=== PATIENT | female | born 1950 | race Caucasian/White ===

== ENCOUNTER 2020-07-21 09:58 | Outpatient (REF) | payer MEDICARE, SELFPAY ==
--- NOTE | 2020-07-21 10:04 | MM_ITS ---
EXAMINATION: MM SCREENING DIGITAL BREAST TOMOSYNTHESIS, BILATERAL CLINICAL INFORMATION: Screening. Asymptomatic. The lifetime risk of breast cancer based on the Tyrer-Cuzick Model is 2%. COMPARISON: Mammography: 06/12/2018, 04/20/2017, 04/11/2017, 07/12/2014; breast MRI 05/01/2017 TECHNIQUE: Digital breast tomosynthesis is performed in both the craniocaudal and mediolateral oblique views along with computer-aided detection (CAD). Synthesized 2D images are generated from the tomosynthesis. Additional exaggerated left CC view is provided. FINDINGS: The breasts are heterogeneously dense, which may obscure small masses (ACR BI-RADS breast composition Category c). There are no significant masses, abnormal calcifications, or other abnormalities. No significant changes from prior exams. MM/MM tomosynthesis screening BI IMPRESSION: No mammographic evidence of malignancy. ASSESSMENT: BI-RADS 1: Negative RECOMMENDATION: Routine annual mammography screening. This patient's information was entered into a reminder system with a target due date for their next mammogram.
--- NOTE | 2020-07-21 10:04 | MM_ITS ---
EXAMINATION: BONE DENSITOMETRY CLINICAL INDICATION: Screening for osteoporosis. COMPARISON: Previous BD dated 06/12/2018 and baseline BD dated 05/14/2009. TECHNIQUE: Using a [employer] DXA System (software version: 13.1) manufactured by [employer], dual-energy x-ray absorptiometry was performed of the lumbar spine and left hip. The images are of good technical quality. Summary results are attached. FINDINGS: AP SPINE L1-L4: Current: BMD 0.917 g/cm2, Z-score 0.0, T-score -2.2, osteopenia, 0.3% decrease from previous, 0.3% increase from baseline (<5% change is not significant). Prior: BMD 0.920 g/cm2. Baseline: BMD 0.914 g/cm2. LEFT FEMUR, NECK: Current: BMD 0.829 g/cm2, Z-score 0.6, T-score -1.5, osteopenia. Prior: BMD 0.841 g/cm2. Baseline: BMD 0.778 g/cm2. LEFT FEMUR, TOTAL: Current: BMD 0.742 g/cm2, Z-score -0.2, T-score -2.1, osteopenia, 7.0% decrease from previous, 14.2% decrease from baseline (<5% change is not significant). Prior: BMD 0.798 g/cm2. Baseline: BMD 0.865 g/cm2. IDENTIFIED RISK FACTORS: Height loss, family history (parental hip fracture), menopause. HISTORY OF FRACTURE: None listed. MEDICATIONS: Vitamin D. MM/XR DEXA axial skeleton IMPRESSION: 1. DIAGNOSIS: Osteopenia based on the lowest T-score value of -2.2 in the lumbar spine applying World Health Organization criteria. 2. 10-YEAR FRACTURE RISK PREDICTION, FRAX: Major osteoporotic fracture (clinical spine, forearm, hip or shoulder) 13.9%. Hip fracture 4.7%. 3. Treatment Recommendations: NOF guidelines recommend consideration for treatment in postmenopausal women and men age 50 and older presenting with the following: -A hip or vertebral (clinical or morphometric) fracture. -T-score less than or equal to -2.5 at the femoral neck or spine after appropriate evaluation to exclude secondary causes. -Low bone mass at the hip or spine and a 10-year fracture probability by FRAX of greater than or equal to 3% for hip fracture or greater than or equal to 20% for major osteoporotic fracture based on the [place] adapted WHO algorithm. 4. Other Recommendations: All treatment decisions require clinical judgment and consideration of individual patient factors, including patient preferences, comorbidities, previous drug use, risk factors not captured in the FRAX model (e.g. frailty, falls, vitamin D deficiency, increased bone turnover, interval significant decline in bone density) and possible under or overestimation of fracture risk by FRAX. Additional medical evaluation for secondary cause of low bone mineral density may be appropriate. FUTURE SCAN RECOMMENDATION: People with diagnosed cases of osteoporosis or at high risk for fracture should have regular bone mineral density tests. For patients eligible for Medicare, routine testing is allowed once every 2 years. The testing frequency can be increased to one year for patients who have rapidly progressing disease, those who are receiving or discontinuing medical therapy to restore bone mass, or have additional risk factors.
== END 2020-07-21 09:59 | disposition home or self-care (01) ==
LOC: HO.MAMMO 09:58
PROVIDERS: Visit Provider Nurse Practitioner Family
DX: Z12.31 Encounter for screening mammogram for malignant neoplasm of breast (principal); Z13.820 Encounter for screening for osteoporosis; Z78.0 Asymptomatic menopausal state; Z79.899 Other long term (current) drug therapy
CPT/HCPCS: 77063; 77067; 77080

== ENCOUNTER 2021-10-19 11:55 | Outpatient (REF) | payer MEDICARE, SELFPAY ==
--- NOTE | ~2021-10-19 | MM_ITS ---
EXAMINATION: MM SCREENING DIGITAL BREAST TOMOSYNTHESIS, BILATERAL CLINICAL INFORMATION: Screening. Asymptomatic. The lifetime risk of breast cancer based on the Tyrer-Cuzick Model is 2%. COMPARISON: Mammography: 07/21/2020, 06/12/2018, 04/20/2017 TECHNIQUE: Digital breast tomosynthesis is performed in both the craniocaudal and mediolateral oblique views along with computer-aided detection (CAD). Synthesized 2D images are generated from the tomosynthesis. FINDINGS: The breasts are extremely dense, which lowers the sensitivity of mammography (ACR BI-RADS breast composition Category d). Parenchymal pattern is similar to prior studies. No developing density. No architectural abnormality. There are scattered bilateral vascular calcifications. The axilla are unremarkable. No significant changes. MM/MM tomosynthesis screening BI IMPRESSION: No mammographic evidence of malignancy. ASSESSMENT: BI-RADS 1: Negative RECOMMENDATION: Routine annual mammography screening. This patient's information was entered into a reminder system with a target due date for their next mammogram.
== END 2021-10-19 11:56 | disposition home or self-care (01) ==
LOC: HO.MAMMO 11:55
PROVIDERS: Visit Provider Nurse Practitioner Family
DX: Z12.31 Encounter for screening mammogram for malignant neoplasm of breast (principal)
CPT/HCPCS: 77063; 77067

== ENCOUNTER 2024-07-23 09:56 | Outpatient (AMB) | payer MEDICARE, SELFPAY ==
--- NOTE | 2024-07-23 10:01 | A.OFFVIS_ITS ---
Vital Signs 07/23/24 10:02 Height 5 ft 5 in Weight 114 lb 6.719 oz BMI 19.0 BP 122/78 Blood Pressure Location Lt brachial Position Sitting Pulse 77 Pulse Source Pulse Oximeter Pulse Oximetry (%) 99 Oxygen Delivery Method Room Air Intake Visit Reasons: joint pain/CM Intake Note: Patient is here to follow up on joint pain today. Allergies tramadol Allergy (Intermediate, Verified 07/23/24 10:10) extreme vomiting HPI HPI joint pain/CM: Details: Right CMC pain is bothering patient. She is having more difficulty with using hand. No new joint swelling. She saw Dr. Saravia core worker who was concerned with her being on hydroxychloroquine due to age-related macular degeneration. She said that he wrote me a letter but I have not received it. She has been having on and off mid back pain occurring localized to left side. Denies any incident contributing to the onset of pain. Applying heat helps. Review of Systems Const All systems reviewed & are unremarkable except as noted in HPI and below Physical Exam Vital Signs: Last Vital Signs Pulse 77 07/23/24 10:02 BP 122/78 07/23/24 10:02 Pulse Ox 99 07/23/24 10:02 Oxygen Delivery Method Room Air 07/23/24 10:02 BMI result Body Mass Index 19.0 Const Other: General: Comfortable CVS: RRR Respiratory: clear to auscultation bilaterally. Good respiratory effort Skin: No lesions seen MSK: Tender to palpate right CMC with squaring. Left 1st MCP is tender on palpation. Ulnar deviation of right MCPs which are reproducible. No synovitis present. 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 Good construction equipment overhauler strength. Good range of motion of upper extremity and lower extremity. Scoliosis present. No spinous process tenderness. Patient localizes pain left scapula and lateral to it. Office Procedures AMB Joint Injection/Aspiration Joint Injection/Aspiration Details: Right CMC Prep: site was prepped using aseptic technique Injected: 10 mg of, Kenalog, with 0.25 mL of and 1% plain lidocaine Procedure: The patient tolerated the procedure well Coding - Small Joint Procedure code (CPT) selection complete Office Meds Kenalog 40 mg/mL suspension for injection Performing Provider: Wilfredo Mendoza MD Performing Location: [facility] [place] Rhe[facility] Administered by: Wilfredo Mendoza MD on 07/23/24 11:24 Dose Route Admin Location Dispensed Lot Number Expiration Date [facility] Electrode Cleaning Machine Operator 10 mg intra-articular 0.25 mL [id number] [employer] lidocaine (PF) 10 mg/mL (1 %) injection solution Performing Provider: Wilfredo Mendoza MD Performing Location: [facility] [place] [facility] Administered by: Wilfredo Mendoza MD on 07/23/24 11:24 Dose Route Admin Location Dispensed Lot Number Expiration Date [facility] Electrode Cleaning Machine Operator 2.5 mg Infiltration 2 mL [id number] [facility] Assessment & Plan Assessment & Plan (1) Rheumatoid arthritis, seropositive: Comment: History of seropositive rheumatoid arthritis with positive anti CCP antibody, radiographic findings of periarticular osteopenia carpal bones and MCPs with joint space narrowing of MCPs, PIP knees and IP knees with multiple questionable erosions. In remission on monotherapy with hydroxychloroquine. She was recently told by Dr. Saravia that she should consider alternative treatment to hydroxychloroquine. I have not received his clinic note. Patient had an eye exam by Dr. Dalia Handy 05/10/2024 with normal visual field and OCT exam. 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 She has a strong family history of FMF. Her daughter and grandson have systemic FMS. Her son has FMS related inflammatory arthritis. She has reported episodic joint pain since she was young. Monitoring clinically. Code(s): M05.9 - Rheumatoid arthritis with rheumatoid factor, unspecified Category: Medical Plan: Continue hydroxychloroquine 200 mg daily. I have asked patient to contact Dr. Saravia's office for him to send me clinic note from April exam. Recent exam by Dr. Dalia Handy 04/2024 OCT anf VF normal. Patient has history of age- related macular degeneration. Labs for disease and drug monitoring ordered Return to clinic in 3 months (2) Scoliosis: Comment: Likely contributing to myofascial strain. We discussed importance of having good posture, building core and back strength with physical therapy. Code(s): M41.9 - Scoliosis, unspecified Category: Medical Plan: PT ordered Return to clinic in 3 months (3) Arthritis of carpometacarpal (CMC) joint of right thumb: Comment: Uncontrolled pain. Code(s): M18.11 - Unilateral primary osteoarthritis of first carpometacarpal joint, right hand Category: Medical Plan: Patient received cortisone injection of right CMC this visit Continue to use diclofenac gel 1% as needed Return to clinic in 3 months (4) Raynaud's phenomenon without gangrene: Comment: Not active Code(s): I73.00 - Raynaud's syndrome without gangrene Category: Medical Plan: Continue conservative management Orders: Orders Alanine Aminotransferase Today M41.9 - Scoliosis, unspecified Aspartate Amino Transferase Today M41.9 - Scoliosis, unspecified PT Evaluation and Treatment 1 Month M41.9 - Scoliosis, unspecified Erythrocyte Sedimentation Rate Today M41.9 - Scoliosis, unspecified Hepatitis B,C Profile Today M41.9 - Scoliosis, unspecified T Spot TB Today M41.9 - Scoliosis, unspecified Complete Blood Count Auto Diff Today M41.9 - Scoliosis, unspecified Creatinine Today M41.9 - Scoliosis, unspecified C Reactive Protein Today M41.9 - Scoliosis, unspecified AMB Joint Injection/Aspiration Today M18.11 - Unilateral primary osteoarthritis of first carpometacarpal joint, right hand Coding Level of Care Code Est Pt Level 4 (14936) Complex EM visit Add On G2211 Diagnoses Rheumatoid arthritis, seropositive M05.9 Scoliosis M41.9 Arthritis of carpometacarpal (CMC) joint of right thumb M18.11 Raynaud's phenomenon without gangrene I73.00 CPT Codes Coding - - Small joint: - Small Joint ([id number])
[2024-07-23 10:02] VITALS: BP 122/78; PULSE 77; O2SAT 99; BMI 19.0
== END 2024-07-23 10:54 | disposition home or self-care (01) ==
PROVIDERS: PCP Nurse Practitioner Family; Visit Provider Internal Medicine Rheumatology
DX: M05.9 Rheumatoid arthritis with rheumatoid factor, unspecified (principal); M41.9 Scoliosis, unspecified; M18.11 Unilateral primary osteoarthritis of first carpometacarpal joint, right hand; I73.00 Raynaud's syndrome without gangrene
CPT/HCPCS: 20600; 99214

== ENCOUNTER → 2024-07-23 09:56 | Outpatient (BNVA) | payer MEDICARE, SELFPAY | PROVIDERS: PCP Nurse Practitioner Family; Visit Provider Internal Medicine Rheumatology | DX: M05.9 Rheumatoid arthritis with rheumatoid factor, unspecified (principal); M18.11 Unilateral primary osteoarthritis of first carpometacarpal joint, right hand; M41.9 Scoliosis, unspecified; I73.00 Raynaud's syndrome without gangrene | CPT/HCPCS: 20600; 99212; J2003; J3300 ==

== ENCOUNTER 2024-07-24 09:27 | Outpatient (REF) | payer MEDICARE, SELFPAY ==
[2024-07-24 13:22] LABS: Basophils Percent Auto 0.7 % (0-2); Eosinophils Percent Auto 0.4 % (0-4); Hematocrit 45.4 % (37.0-47.0); Hemoglobin 14.5 g/dl (12.0-16.0); Imm Gran Abs Auto 0.02 X10*3/uL (0.00-0.03); Imm Gran Pct Auto 0.4 % (0.0-0.4); Lymphocytes Absolute Auto 0.9 X10*3/uL (1.2-4.9); Lymphocytes Percent Auto 17.3 % (20-40); MANUAL DIFF FLAG SCAN; Mean Corpuscular HGB Conc 31.9 g/dl (31.0-35.0); Mean Corpuscular Hemoglobin 32.2 pg (27.0-33.0); Mean Corpuscular Volume 100.7 fL (80.0-98.0); Monocytes Absolute Auto 0.4 X10*3/uL (0.1-1.2); Monocytes Percent Auto 7.6 % (2-11); Neutrophils Percent Auto 73.6 % (45-73); PLT CLUMP 1; Red Blood Count 4.51 X10*6/uL (4.20-5.50); Red Cell Distribution Width 12.7 % (11.0-16.0); SCAN SMEAR FLAG 1
[2024-07-24 13:52] LABS: Mean Platelet Volume 11.5 fL (9.4-12.3); Platelet Count 221 X10*3/uL (160-400); White Blood Count 5.7 X10*3/uL (4.8-10.8)
[2024-07-24 13:53] LABS: SLIDE REVIEW VERIFIED
[2024-07-24 13:57] LABS: Erythrocyte Sedimentation Rate 5 MM/HR (0-20)
[2024-07-24 13:59] LABS: Alanine Aminotransferase 31 U/L (0-31); Aspartate Amino Transferase 38 U/L (5-31); C Reactive Protein 0.17 mg/dL (< or = 0.50); Estimated Glomerular Filt Rate > 60
[2024-07-25 04:44] LABS: HBS Num1 74.49 mIU/mL (0-7.99); HBc Num1 0.16 S/CO (0.00-0.79); HBsAGNum1 0.46 S/CO (0.00-0.99); Hepatitis B Core Antibody Nonreactive (Nonreactive); Hepatitis B Surface Antigen Negative (Negative); ~HepC Num1 0.07 S/CO (0.00-0.79); ~Hepatitis B Surface Antibody REACTIVE (Nonreactive); ~Hepatitis C Antibody Nonreactive (Nonreactive)
[2024-07-27 21:14] LABS: TS Negative Control Passed; TS Panel A 0; TS Panel B 0; TS Positive Control Passed; TSpotTB Negative (Negative)
--- OUTSIDE RECORDS SUMMARY | 2024-07-30 17:08 | XMS_ITS | Continuity of Care Document ---
Author Organization [facility] Address [address] [place] [id number]- Care Team Providers Care Warehouse Engineer Name Role Phone Johan HYDRAMATIC SPECIALISTNilam Primary Care Physician Encounter [facility] Date(s): 05/30/24 - 06/29/24 [facility] [address] [place] [id number] Allergies, Adverse Reactions, Alerts Substance Reaction Severity Status traMADol 1 Vomiting Active 1nausea and vomiting Immunizations Given and Recorded Vaccine Date Status Refusal Reason influenza virus vaccine, inactivated 1 05/22/24 Gi viloet influenza virus vaccine, inactivated 05/16/23 Mack rded influenza virus vaccine, inactivated 06/01/22 Mack rded influenza virus vaccine, inactivated 05/05/21 Mack rded influenza virus vaccine, inactivated 06/04/20 Mack rded influenza virus vaccine, inactivated 06/10/16 Mack rded SARS-CoV-2(COVID-19)mRNA-LNP vac([id number]) 05/24/23 Recorded pneumococcal 20-valent conjugate vaccine 2 04/11/23 Given tetanus-diphtheria toxoids (Td) 3 10/18/22 Given [id number] bivalent booster vax 06/08/22 Recorded pneumococcal 23-valent vaccine 04/05/22 Given SARS-CoV-2 (COVID-19) mRNA BNT-162b2 vac 06/22/21 Recorded SARS-CoV-2 (COVID-19) mRNA BNT-162b2 vac 11/26/20 Recorded SARS-CoV-2 (COVID-19) mRNA BNT-162b2 vac 11/05/20 Recorded pneumococcal 13-valent vaccine 06/10/16 Recorded 1Result Comment: [id number] 2Result Comment: [id number] 3Result Comment: [id number] Medications acetaminophen 325 mg oral tablet 650 mg, By Mouth, Every 6 hours, May take OTC, Refills 0, Maintenance, 12/15/22 8:20:00 EDT, Partial fill upon patient request if the prescription is for a schedule II opioid drug. Start Date: 12/15/22 Status: Ordered amLODIPine 2.5 mg oral tablet 2.5 mg, 1, tablet, By Mouth, Daily, # 30 tablet, Refills 11, Tot. Refills 11, Maintenance, 239:10:00 EST, Route to Pharmacy Electronically, [id number], Partial fill upon patient request if the prescription is for a schedule II opioid... Start Date: 07/12/23 Status: Ordered aspirin 81 mg oral delayed release tablet 81 mg, By Mouth, 2 times a day, # 60 tablet, Refills 0, Tot. Refills 0, Maintenance, 12/15/22 8:19:00 EDT, Route to Pharmacy Electronically, [facility], Partial fill upon patient request if the prescription is for a schedule II opioid . Start Date: 12/15/22 Stop Date: 01/14/23 Status: Ordered Claritin 10 mg oral tablet 10 mg, 1, tablet, By Mouth, Daily, Refills 0, Maintenance, 02/01/24 9:11:00 EDT, Partial fill upon patient request if the prescription is for a schedule II opioid drug. Start Date: 02/01/24 Status: Ordered Hydroxychloroquine = 200 mg, By Mouth, Daily, 0 Refills, Maintenance, 06/09/21 9:51:00 EDT, Partial fill upon patient request if the prescription is for a schedule II opioid drug. Start Date: 06/09/21 Status: Ordered meclizine 25 mg oral tablet 1 tablet = 25 mg, By Mouth, 3 times a day, PRN for dizziness, # 30 tablet, 0 Refills, Acute 02/01/25 12:00:00 EDT, 02/01/24 9:28:00 EDT, Tablet, [id number], 164, cm, 02/01/24 9:12:00 EDT, Height, 49.8, kg, 12/14/22 11:05:00 EDT, Dry Weight Start Date: 02/01/24 Stop Date: 02/01/25 Status: Ordered Multivitamin Daily, 0 Refills, Maintenance, 04/11/23 9:11:00 EDT, Partial fill upon patient request if the prescription is for a schedule II opioid drug. Start Date: 04/11/23 Status: Ordered Bombay-3 Fish Oil By Mouth, 3 times a day, 0 Refills, Maintenance, 07/12/23 8:43:00 EST, Partial fill upon patient request if the prescription is for a schedule II opioid drug. Start Date: 07/12/23 Status: Ordered Vitamin D3 1000 intl units oral capsule 1 capsule = 1,000 International_Units, By Mouth, Daily, 0 Refills, Maintenance, 02/11/19 14:50:18 EDT Start Date: 02/11/19 Stop Date: 03/13/19 Status: Ordered ZyrTEC 10 mg oral tablet 1 tablet = 10 mg, By Mouth, Daily, # 90 tablet, 0 Refills, Maintenance, 08/01/23 11:37:00 EST, Tablet, [id number], 164, cm, 08/01/23 11:24:00 EST, Height, 49.8, kg, 12/14/22 11:05:00 EDT, Dry Weight Start Date: 08/01/23 Stop Date: 10/30/23 Status: Ordered Problem List Condition Confirmation Course Effective Dates Status Health Status Informant Trochanteric bursitis Confirmed Active Chronic diastolic CHF (congestive heart failure), NYHA class 2 Confirmed Active Chronic insomnia Confirmed Active Decreased diffusion capacity Confirmed Active Lumbar disc disease Confirmed Active Long-term use of Plaquenil Confirmed Active Familial Mediterranean fever Confirmed Active Hypercholesteremia Confirmed Active 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 Confirmed Active Right upper lobe pulmonary nodule Confirmed Active Obstructive sleep apnea syndrome, moderate Confirmed Active Severe Osteoarthritis of both hips Confirmed Active Osteopenia Confirmed Active Tricuspid valve regurgitation Confirmed Active Social History Social History Type Response Smoking Status Never (less than 100 in lifetime) entered on: 03/26/19 Sex Patient Care team information Care Team Personnel Name: Nilam Prado NP Position: [facility]O Associate Professional Member Role: PCP Address: Address: [address] [place] [id number]- Name: Moise Chaudhry RN Position: [facility] RN Member Role: Primary Care Nurse Care Team Related Persons Name: CASEY MORENO Address: [address] [place] [address] Name: RAYRAY ROBERSON Address: home [address] [place] [address]
--- OUTSIDE RECORDS SUMMARY | 2024-07-30 17:08 | XMS_ITS | Continuity of Care Document ---
Author Organization [facility] [place] Address [address] [place] [address]- Care Team Providers [employer] Principal Name Role Phone Nilam Prado NP Primary Care Physician Encounter 07/03/24 - 07/10/24 [facility] [place] [address], [address] [place], [place] [address] Attending Physician: Nilam Prado NP Admitting Physician: Nilam Prado NP Referring Physician: Nilam Prado NP Encounter Type: OutPatient One Time Allergies, Adverse Reactions, Alerts Substance Criticality Severity Reaction Reaction Severity Status traMADol 1 Vomiting Active 1nausea and vomiting Immunizations Given and Recorded Vaccine Date Status Refusal Reason influenza virus vaccine, inactivated 1 05/22/24 Gi violet influenza virus vaccine, inactivated 05/16/23 Mack rded influenza virus vaccine, inactivated 06/01/22 Mack rded influenza virus vaccine, inactivated 05/05/21 Mack rded influenza virus vaccine, inactivated 06/04/20 Mack rded influenza virus vaccine, inactivated 06/10/16 Mack rded SARS-CoV-2(COVID-19)mRNA-LNP vac([id number]) 05/24/23 Recorded pneumococcal 20-valent conjugate vaccine 2 04/11/23 Given tetanus-diphtheria toxoids (Td) 3 10/18/22 Given [id number] bivalent booster vax 06/08/22 Recorded pneumococcal 23-valent vaccine 04/05/22 Given SARS-CoV-2 (COVID-19) mRNA BNT-162b2 vac 06/22/21 Recorded SARS-CoV-2 (COVID-19) mRNA BNT-162b2 vac 11/26/20 Recorded SARS-CoV-2 (COVID-19) mRNA BNT-162b2 vac 11/05/20 Recorded pneumococcal 13-valent vaccine 06/10/16 Recorded 1Result Comment: [id number] 2Result Comment: [id number] 3Result Comment: [id number] Medications acetaminophen 325 mg oral tablet 650 mg, By Mouth, Every 6 hours, May take OTC, Refills 0, Maintenance, 12/15/22 8:20:00 AM EDT, Partial fill upon patient request if the prescription is for a schedule II opioid drug. Start Date: 12/15/22 Status: Ordered Repeat number: 1 amLODIPine 2.5 mg oral tablet 1 tablet, By Mouth, Daily, # 30 tablet, 0 Refills, Maintenance, 07/01/24 8:00:00 AM [facility], 164, cm, 05/23/24 10:29:00 EDT, Height, 49.8, kg, 12/14/22 11:05:00 EDT, Dry Weight Start Date: 07/01/24 Status: Ordered Quantity: 30.0 Unit: tablet Repeat number: 1 aspirin 81 mg oral delayed release tablet 81 mg, By Mouth, 2 times a day, # 60 tablet, Refills 0, Tot. Refills 0, Maintenance, 12/15/22 8:19:00 AM EDT, Route to Pharmacy Electronically, [facility], Partial fill upon patient request if the prescription is for a schedule II opioid drug., 162, cm, 12/15/22 6:40:00 EDT, Height, 49.8, kg, 12/14/22 11:05:00 EDT, Dry Weight Start Date: 12/15/22 Stop Date: 01/14/23 Status: Ordered Quantity: 60.0 Unit: tablet Repeat number: 1 Claritin 10 mg oral tablet 10 mg, 1, tablet, By Mouth, Daily, Refills 0, Maintenance, 02/01/24 9:11:00 AM EDT, Partial fill upon patient request if the prescription is for a schedule II opioid drug. Start Date: 02/01/24 Status: Ordered Repeat number: 1 Hydroxychloroquine = 200 mg, By Mouth, Daily, 0 Refills, Maintenance, 06/09/21 9:51:00 AM EDT, Partial fill upon patient request if the prescription is for a schedule II opioid drug. Start Date: 06/09/21 Status: Ordered Repeat number: 1 meclizine 25 mg oral tablet 1 tablet = 25 mg, By Mouth, 3 times a day, PRN for dizziness, # 30 tablet, 0 Refills, Acute 02/02/2512:00:00 PM EDT, 02/01/24 9:28:00 AM EDT, Tablet, [facility], 164, cm, 02/01/24 9:12:00 EDT, Height, 49.8, kg, 12/14/22 11:05:00 EDT, Dry Weight Start Date: 02/01/24 Stop Date: 02/01/25 Status: Ordered Quantity: 30.0 Unit: tablet Repeat number: 1 Multivitamin Daily, 0 Refills, Maintenance, 04/11/23 9:11:00 AM EDT, Partial fill upon patient request if the prescription is for a schedule II opioid drug. Start Date: 04/11/23 Status: Ordered Repeat number: 1 Earth-3 Fish Oil By Mouth, 3 times a day, 0 Refills, Maintenance, 07/12/23 8:43:00 AM EST, Partial fill upon patientrequest if the prescription is for a schedule II opioid drug. Start Date: 07/12/23 Status: Ordered Repeat number: 1 Vitamin D3 1000 intl units oral capsule 1 capsule = 1,000 International_Units, By Mouth, Daily, 0 Refills, Maintenance, 02/11/19 2:50:18 PM EDT Start Date: 02/11/19 Stop Date: 03/13/19 Status: Ordered Repeat number: 1 ZyrTEC 10 mg oral tablet 1 tablet = 10 mg, By Mouth, Daily, # 90 tablet, 0 Refills, Maintenance, 08/01/23 11:37:00 AM EST, Tablet, [facility], 164, cm, 08/01/23 11:24:00 EST, Height, 49.8, kg, 12/14/22 11:05:00 EDT, Dry Weight Start Date: 08/01/23 Stop Date: 10/30/23 Status: Ordered Quantity: 90.0 Unit: tablet Repeat number: 1 Problem List Condition Confirmation Course Effective Dates [...] Confirmed Active Tricuspid valve regurgitation Confirmed Active Results Radiology Reports * Exam Date Time Procedure Performing Provider Status 07/03/24 10:30 AM MM Digital Mammo Screening ButchivánJaylene; Auth (Verified) Notes: (MM Digital Mammo Screening) Reason For Exam: screening RESULT: MM Digital Mammo Screening PROCEDURE: MM Digital Mammo Screening INDICATION: Screening for breast cancer COMPARISON: Multiple priors, most recently 12/01/2022 TECHNIQUE: Full-field digital CC and MLO 3D tomosynthesis images of both breasts were acquired. Computer-aided detection (CAD) was utilized in the interpretation of this study. DENSITY: The breast tissue is heterogeneously dense, which may obscure small masses. FINDINGS: No suspicious masses, suspicious microcalcifications, or areas of architectural distortion are seen in either breast to suggest malignancy. IMPRESSION: No mammographic evidence of malignancy. RECOMMENDATION: Annual mammographic screening BI-RADS: 1 (Negative) Lay letter mailed to patient WSN: [id number] Ordering Physician: Nilam Prado Dictated By: Sergio Rodriguez MD Dictated Date/Time: 07/03/24 1:21 pm Reviewed By: Sergio Rodriguez MD Signed By: Sergio Rodriguez MD Signed Date/Time: 07/03/24 1:21 pm Transcribed By: RYAN Motorcycle Designer Date/Time: 07/03/24 1:20 pm Birads: Social History Social History Type Response Smoking Status Never (less than 100 in lifetime) entered on: 03/26/19 Sex Sex Representation Female (finding) Patient Care team information Care Team Personnel Name: Nilam Prado NP Position: [facility] Associate Professional Member Role: PCP [address]: [address] [place] [address]- Telecom: Name: Moise Chaduhry RN Position: S RN Member Role: Primary Care Nurse Care Team Related Persons Name: CASEY MORENO Name: RAYRAY ROBERSON Insurance Providers Guarantor name: JAMIA ROBERSON [facility] Information #: 1 Payer: [facility] [employer] Member Number: [id number] Policy Number: NA Group Number: [id number] Health Plan Information #: 2 Payer: [facility] [facility] [employer] Member Number: [id number] Policy Number: NA Group Number: [id number]
== END 2024-07-24 09:28 | disposition home or self-care (01) ==
LOC: HO.HMGCLDS 09:27
PROVIDERS: PCP Nurse Practitioner Family; Visit Provider Internal Medicine Rheumatology
DX: M41.9 Scoliosis, unspecified (principal)
CPT/HCPCS: 36415; 82565; 84450; 84460; 85025; 85652; 86140; 86481; 86704; 86706; 86803; 87340

== ENCOUNTER 2024-09-05 09:00 | Outpatient (RCR) | payer MEDICARE, SELFPAY ==
--- NOTE | 2024-08-06 13:23 | MHC.PT.EP ---
[facility] [place] Office [place] Office [place] Office [address] [phone] F: [phone] F: [phone] F: [phone] F: [phone] Physical Therapy Plan of Care Date of Evaluation: 08/06/24 Date of Surgery: Diagnosis: scoliosis Assessment: Patient is a 74 year old R handed female who presents with s/s consistent with scoliosis. She does not work but does like to stay active at home and in the community. Patient past medical history includes HTN and OA. Current impairments include pain, posture, ROM, strength, activity tolerance and functional mobility. Functional limitations include decreased ability to reach, lift, carry, push, pull, cook and stand greater than 30 minutes. Patient is motivated with good rehab potential. Skilled PT will address impairments and functional limitations in order to achieve goals. 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 Manual therapy to restore motion and function. Therapeutic exercise to improve strength and flexibility. Neuromuscular re-education for posture and balance. Therapeutic activities to return to functional activities of daily living. Electronically signed by: Chip Zuniga, PT Please sign and return to therapist. Thank you for your referral.
--- NOTE | 2024-11-13 10:28 | MHC.PT.DC ---
[facility] [place] Office [place] Office [place] Office [address] Destiny Torres [address] [phone] F: [phone] F: [phone] F: [phone] F: [phone] Physical Therapy Discharge Report Diagnosis: scoliosis Date of Surgery: Date of Evaluation: 08/06/24 Date of Discharge: 10/05/24 Treatments to Date: 4 Cancellations to Date: No Shows to Date: Discharge Status: Independent with HEP Discharge Summary: 09/05/24: we reviewed program and I updated HEP. pt would like continue exclusively with HEP at this time. She has not yet achieved appreciable progress and I educated her that the gains she is hoping to achieve are likely to be obtained through consistency with program over a longer period of time. d/c to HEP at this time. 08/29/24: progressing with core stab and postural awareness. continue to progress as tolerated. 08/22/24: pt progressing well with skilled PT. Patient is a 74 year old R handed female who presents with s/s consistent with scoliosis. She does not work but does like to stay active at home and in the community. Patient past medical history includes HTN and OA. Current impairments include pain, posture, ROM, strength, activity tolerance and functional mobility. Functional limitations include decreased ability to reach, lift, carry, push, pull, cook and stand greater than 30 minutes. Patient is motivated with good rehab potential. Skilled PT will address impairments and functional limitations in order to achieve goals. Electronically signed by: Chip Zuniga, PT Please sign and return to therapist. Thank you for your referral.
== END 2024-11-13 10:29 | disposition home or self-care (01) ==
LOC: HO.PTCHIC 09:00
PROVIDERS: PCP Nurse Practitioner Family; Visit Provider Internal Medicine Rheumatology
DX: M41.9 Scoliosis, unspecified (principal)
CPT/HCPCS: 97110; 97162; 97530

== ENCOUNTER 2024-10-24 10:39 | Outpatient (AMB) | payer MEDICARE, SELFPAY ==
--- NOTE | 2024-10-24 10:45 | MHC.OFFVIS ---
Vital Signs 10/24/24 11:01 Height 5 ft 5 in Weight 114 lb 6.719 oz BMI 19.0 BP 130/80 Blood Pressure Location Lt brachial Position Sitting Pulse 84 Pulse Source Pulse Oximeter Pulse Oximetry (%) 99 Oxygen Delivery Method Room Air Intake Visit Reasons: Follow Up 3mo Intake Note: Patient is here to follow up on joint pain today. Allergies tramadol Allergy (Intermediate, Verified 10/24/24 11:01) extreme vomiting HPI HPI Follow Up 3mo: Details: She has been going to physical therapy for upper left back muscle strain. She went to 2 physical therapy sessions and has been doing exercises at home. After a long car ride about an hour she experienced increased right hip pain. 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 He was limping when it occurred. She experienced foot swelling without pain, which self resolved. She is in the process of having cataract surgery. Review of Systems Const All systems reviewed & are unremarkable except as noted in HPI and below Physical Exam Vital Signs: Last Vital Signs Pulse 84 10/24/24 11:01 BP 130/80 10/24/24 11:01 Pulse Ox 99 10/24/24 11:01 Oxygen Delivery Method Room Air 10/24/24 11:01 BMI result Body Mass Index 19.0 Const Other: General: Comfortable CVS: RRR Respiratory: clear to auscultation bilaterally. Good respiratory effort Skin: No lesions seen MSK: Nontender CMCs with squaring. Ulnar deviation of right MCPs which are reproducible. No synovitis present. 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 Good c iron worker strength. Good range of motion of upper extremity and lower extremity. Mild Scoliosis present. No spinous process tenderness. Assessment & Plan Assessment & Plan (1) Rheumatoid arthritis, seropositive: Comment: In remission on monotherapy with hydroxychloroquine. She was told by Dr. Saravia that she should consider alternative treatment to hydroxychloroquine a few months ago. I have not received his clinic note after requesting it last visit. Patient had an eye exam by Dr. Dalia Handy 05/10/2024 with normal visual field and OCT exam. Rheumatology history: History of seropositive rheumatoid arthritis with positive anti CCP antibody, radiographic findings of periarticular osteopenia carpal bones and MCPs with joint space narrowing of MCPs, PIP knees and IP knees with multiple questionable erosions. 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 She has a strong family history of FMF. Her daughter and grandson have systemic FMS. Her son has FMS related inflammatory arthritis. She has reported episodic joint pain since she was young. Monitoring clinically. Code(s): M05.9 - Rheumatoid arthritis with rheumatoid factor, unspecified Category: Medical Plan: Continue hydroxychloroquine 200 mg daily. Requesting last to clinic notes of Dr. Saravia's evaluation. Eye exam per hand edger Dr. Dalia Handy 04/2024 OCT and VF normal. Patient has history of age-related macular degeneration. Labs for disease and drug monitoring ordered Return to clinic in 3 months (2) Scoliosis: Comment: Likely contributing to myofascial strain. Improved with physical therapy Code(s): M41.9 - Scoliosis, unspecified Category: Medical Plan: Continue PT exercises at home Return to clinic in 3 months (3) Arthritis of carpometacarpal (CMC) joint of right thumb: Comment: Uncontrolled pain. Pain resolved with last cortisone injection. Code(s): M18.11 - Unilateral primary osteoarthritis of first carpometacarpal joint, right hand Category: Medical Plan: Continue to use diclofenac gel 1% as needed Return to clinic in 3 months (4) Raynaud's phenomenon without gangrene: Comment: Active with cold weather. Managed conservatively. Code(s): I73.00 - Raynaud's syndrome without gangrene Category: Medical Plan: Continue conservative management Return to clinic in 3 months Orders: Orders XR scoliosis survey Today M41.9 - Scoliosis, unspecified Aspartate Amino Transferase Today Z79.60 - senior care (current) use of unspecified immunomodulators and immunosuppressants Complete Blood Count Auto Diff Today Z79.60 - terminal system operator (current) use of unspecified immunomodulators and immunosuppressants Creatinine Today Z79.60 - senior care (current) use of unspecified immunomodulators and immunosuppressants C Reactive Protein Today Z79.899 - Other technician terminal and repeater (current) drug therapy Alanine Aminotransferase Today Z79.60 - senior care (current) use of unspecified immunomodulators and immunosuppressants Erythrocyte Sedimentation Rate Today Z79.899 - Other technician terminal and repeater (current) drug therapy Coding Level of Care Code Est Pt Level 4 (91384) Complex EM visit Add On G2211 Diagnoses Rheumatoid arthritis, seropositive M05.9 Scoliosis M41.9 Arthritis of carpometacarpal (CMC) joint of right thumb M18.11 Raynaud's phenomenon without gangrene I73.00
[2024-10-24 11:01] VITALS: BP 130/80; PULSE 84; O2SAT 99; BMI 19.0
--- OUTSIDE RECORDS SUMMARY | 2024-10-24 12:45 | XMS_ITS | Continuity of Care Document ---
Author Organization [facility] Blair Eliu lt Address [address] [place] [address]- Care Team Providers Care Software Systems Architect Name Role Phone Johan PARTS SPECIALIST, Nilam Wilburn Primary Care Physician Encounter [facility] Date(s): 09/26/24 - 10/03/24 [facility] Syd Floresley Adult [address] [place] [address]- Encounter Diagnosis Medicare annual wellness visit, subsequent(Discharge Diagnosis) - 09/26/24 Benign essential hypertension(Discharge Diagnosis) - 09/26/24 Obstructive sleep apnea syndrome, moderate(Discharge Diagnosis) - 09/26/24 Osteopenia(Discharge Diagnosis) - 09/26/24 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(Discharge Diagnosis) - 09/26/24 Long-term use of Plaquenil(Discharge Diagnosis) - 09/26/24 Attending Physician: Not on Staff, Attending MD Encounter Type: Office Visit Allergies, Adverse Reactions, Alerts Substance Criticality Severity Reaction Reaction Severity Status traMADol 1 Vomiting Active 1nausea and vomiting Immunizations Given and Recorded Vaccine Date Status Refusal Reason RSV vaccine preF3, recombinant 06/05/24 Recorded SARS-CoV-2(COVID-19)mRNA-LNP vac([id number]) 06/05/24 Recorded SARS-CoV-2(COVID-19)mRNA-LNP vac([id number]) 05/24/23 Recorded influenza virus vaccine, inactivated 1 05/22/24 Gi violet influenza virus vaccine, inactivated 05/16/23 Mack rded influenza virus vaccine, inactivated 06/01/22 Mack rded influenza virus vaccine, inactivated 05/05/21 Mack rded influenza virus vaccine, inactivated 06/04/20 Mack rded influenza virus vaccine, inactivated 06/10/16 Mack rded SARS-CoV-2 mRNA ([id number]) vax 05/21/24 Recorded pneumococcal 20-valent conjugate vaccine 2 04/11/23 Given tetanus-diphtheria toxoids (Td) 3 10/18/22 Given [id number] bivalent booster vax 06/08/22 Recorded pneumococcal 23-valent vaccine 04/05/22 Given SARS-CoV-2 (COVID-19) mRNA BNT-162b2 vac 06/22/21 Recorded SARS-CoV-2 (COVID-19) mRNA BNT-162b2 vac 11/26/20 Recorded SARS-CoV-2 (COVID-19) mRNA BNT-162b2 vac 11/05/20 Recorded pneumococcal 13-valent vaccine 06/10/16 Recorded 1Result Comment: [id number] 2Result Comment: [id number] 3Result Comment: [id number] Medications acetaminophen 325 mg oral tablet 650 mg, By Mouth, Every 6 hours, May take OTC, Refills 0, Maintenance, 12/15/22 8:20:00 AM EDT, Partial fill upon patient request if the prescription is for a schedule II opioid drug. Start Date: 12/15/22 Status: Ordered Repeat number: 1 amLODIPine 2.5 mg oral tablet 1 tablet, By Mouth, Daily, # 30 tablet, 5 Refills, Maintenance, 07/29/24 7:36:00 AM EST, [id number], 164, cm, 07/24/24 10:56:00 EST, Height, 49.8, kg, 12/14/22 11:05:00 EDT, Dry Weight Start Date: 07/29/24 Status: Ordered Quantity: 30.0 Unit: tablet Repeat number: 1 aspirin 81 mg oral delayed release tablet 81 mg, By Mouth, 2 times a day, # 60 tablet, Refills 0, Tot. Refills 0, Maintenance, 12/15/22 8:19:00 AM EDT, Route to Pharmacy Electronically, [facility], Partial fill upon patient request if [...] Date: 06/09/21 Status: Ordered Repeat number: 1 Icaps AREDS By Mouth, Daily, 0 Refills, Maintenance, 09/26/24 7:13:00 AM EST, Partial fill upon patient request if the prescription is for a schedule II opioid drug. Start Date: 09/26/24 Status: Ordered Repeat number: 1 meclizine 25 mg oral tablet 1 tablet = 25 mg, By Mouth, 3 times a day, PRN for dizziness, # 30 tablet, 0 Refills, Acute 02/02/2512:00:00 PM EDT, 02/01/24 9:28:00 AM EDT, Tablet, [id number], 164, cm, 02/01/24 9:12:00 EDT, Height, 49.8, kg, 12/14/22 11:05:00 EDT, Dry Weight Start Date: 02/01/24 Stop Date: 02/01/25 Status: Ordered Quantity: 30.0 Unit: tablet Repeat number: 1 Multivitamin Daily, 0 Refills, Maintenance, 04/11/23 9:11:00 AM EDT, Partial fill upon patient request if the prescription is for a schedule II opioid drug. Start Date: 04/11/23 Status: Ordered Repeat number: 1 [place]-3 Fish Oil By Mouth, 3 times a day, 0 Refills, Maintenance, 07/12/23 8:43:00 AM EST, Partial fill upon patientrequest if the prescription is for a schedule II opioid drug. Start Date: 11/22/23 Status: Ordered Repeat number: 1 Vitamin D3 1000 intl units oral capsule 1 capsule = 1,000 International_Units, By Mouth, Daily, 0 Refills, Maintenance, 02/11/19 2:50:18 PM EDT Start Date: 02/11/19 Stop Date: 03/13/19 Status: Ordered Repeat number: 1 ZyrTEC 10 mg oral tablet 1 tablet = 10 mg, By Mouth, Daily, # 90 tablet, 0 Refills, Maintenance, 08/01/23 11:37:00 AM EST, Tablet, [facility], 164, cm, 08/01/23 11:24:00 EST, Height, 49.8, kg, 12/14/22 11:05:00 EDT, Dry Weight Start Date: 08/01/23 Stop Date: 10/30/23 Status: Ordered Quantity: 90.0 Unit: tablet Repeat number: 1 Problem List Condition Confirmation Course Effective Dates Status H ealth Status Informant Trochanteric bursitis Confirmed Active Chronic insomnia Confirmed Active Decreased diffusion capacity Confirmed Active Lumbar disc disease Confirmed Active Long-term use of Plaquenil Confirmed Active 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 Discharge Diagnosis 09/26/24 Long-term use of Plaquenil Discharge Diagnosis 09/26/24 Benign essential hypertension Discharge Diagnosis 09/26/24 Vital Signs Most recent to oldest [Reference Range]: 1 Height 164.0 cm (09/26/24 7:05 AM) Weight 52.9 kg (09/26/24 7:05 AM) Oxygen Saturation [94-100 %] 100 % (09/26/24 7:05 AM) Pulse Rate [55-90 bpm] 84 bpm (09/26/24 7:05 AM) Body Mass Index [18.5-24.99 kg/m2] 19.67 kg/m2 (09/26/24 7:05 AM) Blood Pressure [90-138/55-84 mm Hg] 122/ 76mm Hg (09/26/24 7:05 AM) Mode of Delivery (Oxygen) Room air (09/26/24 7:05 AM) Blood pressure sites Arm, left (09/26/24 7:05 AM) Weight Obtained Via Standing scale (09/26/24 7:05 AM) Social History Social History Type Response Smoking Status Never (less than 100 in lifetime) entered on: 03/26/19 Sex Sex Representation Female (finding) EKG study * Event Display: ECG 12-Lead Authored Date: Please click on pdf link to open report * Event Display: ECG 12-Lead Authored Date: Ventricular Rate: 80 BPM Atrial Rate: 80 BPM P-R Interval: 134 ms QRS Duration: 88 ms Q-T Interval: 398 ms QTC Calculation(Bazett): 459 ms P Bush: 59 degrees R Bush: -11 degrees T Bush: 53 degrees Normal sinus rhythm with sinus arrhythmia Normal ECG When compared with ECG of 01-Jan-2024 09:40, No significant change was found Confirmed by DORIS URBINA ([id number]) on 09/26/2024 9:16:05 PM Curlew: DORIS URBINA Note * Pamela Beverly: PERFORM Event Display: Patient Education/Instruction Authored Date: Ambulatory Adult Visit Summary [facility] Adult [facility] [address] [place] [id number] Name: JAMIA ROBERSON : 1950?? Visit: 09/26/2024 07:00?? Ambulatory Visit Instructions ?? Your Care Team Primary Care Provider Johan Nilam KOWALSKI? This Visit Provider Johan Nilam KOWALSKI. 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 With: Tanika VELARDE, Neri Fleming Where: [facility] [address] [place] [address]- Status: Pending Follow-Up Appointments Follow Up with??Johan KOWALSKI, Nilam Wilburn When:??In 1 year Where: ?? Future Orders Complete Urinalysis (UA) - Routine, Once, 09/26/24 7:34:00 EST, Order for Today, [facility], Urine?? CBC w/ Differential - Routine, Once, 09/26/24 7:34:00 EST, Order for Today, [facility], Blood?? Sedimentation Rate (ESR) - Routine, Once, 09/26/24 7:34:00 EST, Order for Today, [facility], Blood?? Comprehensive Metabolic Panel - Routine, Once, 09/26/24 7:38:00 EST, Order for Today, [facility], Blood?? Vitamin D 25 Hydroxy Level - Routine, Once, 09/26/24 7:38:00 EST, Order for Today, [facility], Blood?? Direct LDL - Routine, Once, 09/26/24 7:38:00 EST, Order for Today, [facility], Blood?? TSH - Routine, Once, 09/26/24 8:08:00 EST, Order for Today, [facility], Blood?? Medications The list below reflects the information in our records and provided by you today along with any changes made during this visit. Please continue your medications until treatment is completed or stopped by your provider. If this is different from the information you have or there are other questions,please contact the prescribing provider. What How Much When Instructions Unchanged Acetaminophen (acetaminophen 325 mg oral tablet) 650 Milligram Oral Every 6 hours May take OTC ?? Unchanged Amlodipine (amLODIPine 2.5 mg oral tablet) 1 tab(s) Oral Daily Unchanged Aspirin (aspirin 81 mg oral delayed release tablet) 81 Milligram Oral Twice a day Duration: 30 Days Unchanged Cetirizine (ZyrTEC 10 mg oral tablet) 1 tab(s) Oral Daily Duration: 90 Days Unchanged Cholecalciferol (Vitamin D3 1000 intl units oral capsule) 1 capsule Oral Daily Duration: 30 Days Unchanged Hydroxychloroquine 200 Milligram Oral Daily Unchanged Loratadine (Claritin 10 mg oral tablet) 1 tab(s) Oral Daily Unchanged Meclizine (meclizine 25 mg oral tablet) 1 tab(s) Oral 3 times a day as needed for for dizziness Unchanged Multivitamin Daily Unchanged Multivitamin With Minerals (Icaps AREDS) Oral Daily Unchanged [place]-3 Polyunsaturated Fatty Acids ([place]-3 Fish Oil) Oral 3 times a day Test Performed Below is a partial list of the tests performed during your Visit. You may have had other tests and procedures not included in this list. Please discuss all test results with your provider. CBC w/ Differential?-- Results Pending -- Comprehensive Metabolic Panel?-- Results Pending -- Direct LDL?-- Results Pending -- ESR?-- Results Pending -- TSH?-- Results Pending -- UA?-- Results Pending -- Vitamin D 25 Hydroxy Level?-- Results Pending -- Medications and Immunizations Administered Medications Given During Visit No medications given during this visit.?? Allergies (NKA means No Known Allergies) traMADol??(Vomiting) Education Materials Below is the list of Educational Leaflet Providered with your Visit summary. [employer] Patient Education - Health Screening Guidelines, Women Ages 65 and Older?? Common Emergency Awareness Tips IS IT A STROKE? Act FAST and Check for these signs: FACE Does the face look uneven? ARM Does one arm drift down? SPEECH Does their speech sound strange? TIME Call at any sign of stroke ?? Heart Attack Signs Chest discomfort: Most heart attacks involve discomfort in the center of the chest and lasts more than a few minutes, or goes away and comes back. It can feel like uncomfortable pressure, squeezing, fullness or pain. Discomfort in upper body: Symptoms can include pain or discomfort in one or both arms, back, neck, jaw or stomach. Shortness of breath: With or without discomfort. Other signs: Breaking out in a cold sweat, nausea, or lightheaded. Remember, MINUTES DO MATTER. If you experience any of these heart attack warning signs, call to get immediate medical attention! ?? Smoking can increase your chances of developing chronic health problems and can cause harmful effects to other family members in your house. If you smoke, you are strongly encouraged to quit. Please call [employer] at [phone] or 1-999-927-[employer] (6109) or log in to [email or web address] for referrals to smoking cessation programs. ?? The National Suicide Prevention Hotline is available 13/03 if you or someone you know needs to find a reason to keep living. By calling 4-649-547-[employer] (8071) you'll be connected to a skilled, trained counselor at a crisis center in your area. [employer] Portal You can view and manage your care through the patient portal or by using a health care ilda of your choosing. [employer] is a website that allows you to securely view your medical information including your hospital discharge summary, office visit summaries, medications and follow-up visits. You can also request appointments, renew medications, and request access to your medical information using a health care ilda of your choosing, or just ask a question. You can enroll at [email or web address] or register during your next office visit. [facility], in keeping with [facility] guidance, no longer requires face masks for staff, patientsor visitors in most situations. Similiar to time spent indoors at other locations, there is the chance that you were exposed to repiratory viruses during your time with us (such as flu or COVID-19). If you develop symptoms concerning for a viral respiratory infection, please seek testing (and treatment if indicated) from your medical provider or home test kit. ?? Disclaimer: The information provided is of a general nature and is intended to be used in conjunction with the recommendations and advice of your health care practitioner. Every effort has been made to ensure that the information provided is accurate and complete at the time it is provided to you however, as your needs change, or, as new information becomes available, different or additional instructions may be required. ?? If you have questions, please consult with your primary care provider or pharmacist, as appropriate. This information is not intended to serve as substitution for assessment and evaluation by a qualified health care provider. If you do not have a primary care provider, you may find a [facility] provider by calling [employer] at [phone]. * Johan KOWALSKI, Nilam Wilburn: PERFORM Event Display: Patient Education Leaflets Authored Date: [id number] Health Screening Guidelines, Women Ages 65 and Older ?? [address]70 Health Screening Guidelines, Women Ages 65 and Older Screening tests and health counseling are a healy part of managing your health. A screening test is done to find disorders or diseases in people who don't have any symptoms. Screening tests are not used to diagnose. They are used to find out if more testing is needed. The goal may be to find a disease early so it can be treated with more success. Or the goal may be to find a disease early so you can make lifestyle changes. You may need regular checkups to help reduce your risk of disease. Below are guidelines for women ages 65 and older. Talk with your healthcare provider. Based on yourhealth history and risk factors, your provider may change the screening advice. Make sure you???re up-to-date on what you need. Screening Who needs it How often Type 2 diabetes or prediabetes Women in this age group up to age 70 who are overweight or have obesity Talk with your healthcare provider about how often they recommend screening. Type 2 diabetes All women with prediabetes Every 1 to 2 years Unhealthy alcohol use All women in this age group At routine exams Blood pressure All women in this age group Once a year if your blood pressure is normal. Normal blood pressure is less than 120/80 mm Hg. If your blood pressure is higher than this, follow the advice of your healthcare provider. Breast cancer All women of average risk. Expert groups vary on their advice. Talk with your provider about your specific situation. A mammogram should be done every 1 or 2 years. Talk with your provider about your risk factors. Askhow often you need the test. Ask what age you can stop. The U.S. Preventive Services Task Force advises a mammogram every 2 years through age 74. The [employer] Cancer Society advises screening every 1to 2 years for women 55 and older. They advise screening to continue for as long as a woman is healthy and is expected to live 10 more years or longer. All women should know how their breasts normally look and feel. They should know the benefits and risks of breast cancer screening with mammograms. Cervical cancer Only women who have not been screened regularly or have had abnormal screening results before age 65 Talk with your healthcare provider if screening is needed. Chlamydia Women at higher risk for infection At routine exams. Talk with your healthcare provider. Colorectal cancer All women at average risk in this age group through age 75. For women ages 76 to 85, ask your healthcare provider if you need to keep screening. For women older than 85, screening is not advised Talk with your healthcare provider about which test below is right for you: ??? Colonoscopy every 10 years ??? Flexible sigmoidoscopy every 5 years (or every 10 years with yearly fecal immunochemical test (FIT) stool test) ??? CT colonography (virtual colonoscopy) every 5 years ??? Yearly fecal occult blood test ??? Yearly FIT ??? Stool DNA test every 3 years If you have a test that is not a colonoscopy and have an abnormal test result, you will need a colonoscopy. You may need to be screened more or less often. This is based on personal or family health history.Talk with your healthcare provider. Depression All women in this age group At routine exams Gonorrhea Sexually active women at higher risk for infection At yearly routine exams. Talk with your healthcare provider. Hepatitis C Test 1 time for women through age 79. At routine exams High cholesterol or triglycerides All women in this age group who are at risk for coronary artery disease Every year. Talk with your healthcare provider about your risk. HIV Women at higher risk for infection At routine exams. Talk with your healthcare provider. Lung cancer Women ages 50 to 80 who are in fairly good health, are at higher risk for lung cancer, and who: ??? Smoke or have quit smoking and ??? Have a 20-pack per year smoking history (1 pack a day for 20years or 2 packs a day for 10 years) Expert groups vary in their advice. Talk with your provider. Yearly lung cancer screening with a low dose CT scan (LDCT). Talk with your healthcare provider about your risk factors. Obesity All women in this age group At yearly routine exams Osteoporosis All women in this age group Routinely done every 2 years. Repeat as advised by your healthcare provider. Syphilis Women at higher risk for infection At routine exams. Talk with your healthcare provider. Thyroid-Stimulating Hormone (TSH) Women in this age group with symptoms of thyroid dysfunction Talk with your healthcare provider Tuberculosis Women at higher risk for infection Talk with your healthcare provider Vision All women in this age group Every 1 to 2 years. If you have a chronic health condition, ask your eye care provider if you need exams more often. Counseling Who needs it How often Diet and exercise Women who are overweight or obese When diagnosed, and then at routine exams Fall prevention (exercise and vitamin D supplements) All women in this age group At routine exams Sexually transmitted infection (STI) prevention Women at higher risk for infection At routine exams. Talk with your healthcare provider. Use of tobacco and the health effects it can cause All women in this age group Every exam Last Reviewed Date: 2024 ?? [id number] The [employer]. All rights reserved. This information is not intended as a substitute for professional medical care. Always follow your healthcare professional's instructions. ?? Patient Care team information Care Team Personnel Name: Nilam Prado NP Position: [facility] PCO Associate Professional Member Role: PCP Address: [address] [place] [id number] Telecom: Name: Moise Chaudhry RN Position: [facility] RN Member Role: Primary Care Nurse Care Team Related Persons Name: CASEY MORENO Name: RAYRAY ROBERSON Insurance Providers Guarantor name: JAMIA ROBERSON Health Plan Information #: 1 Payer: [facility] [employer] ADV HMO Member Number: [id number] Policy Number: NA Group Number: [id number] Health Plan Information #: 2 Payer: [facility] MEDIC[employer] ADV HMO Member Number: [id number] Policy Number: NA Group Number: [id number]
== END 2024-10-24 11:44 | disposition home or self-care (01) ==
PROVIDERS: PCP Nurse Practitioner Family; Visit Provider Internal Medicine Rheumatology
DX: M05.9 Rheumatoid arthritis with rheumatoid factor, unspecified (principal); M41.9 Scoliosis, unspecified; M18.11 Unilateral primary osteoarthritis of first carpometacarpal joint, right hand; I73.00 Raynaud's syndrome without gangrene
CPT/HCPCS: 99214; G2211

== ENCOUNTER 2024-10-24 10:39 | Outpatient (REF) | payer MEDICARE, SELFPAY ==
[2024-10-24 17:53] LABS: MANUAL DIFF FLAG NO
[2024-10-24 18:18] LABS: Alanine Aminotransferase 24 U/L (0-31); Aspartate Amino Transferase 33 U/L (5-31); C Reactive Protein 0.31 mg/dL (< or = 0.50); Estimated Glomerular Filt Rate > 60
[2024-10-24 18:32] LABS: Basophils Absolute Auto 0.1 X10*3/uL (0.0-0.2); Basophils Percent Auto 0.9 % (0-2); Eosinophils Percent Auto 0.5 % (0-4); Hematocrit 44.5 % (37.0-47.0); Hemoglobin 14.5 g/dl (12.0-16.0); Imm Gran Abs Auto 0.02 X10*3/uL (0.00-0.03); Imm Gran Pct Auto 0.4 % (0.0-0.4); Lymphocytes Absolute Auto 1.2 X10*3/uL (1.2-4.9); Lymphocytes Percent Auto 20.5 % (20-40); Mean Corpuscular HGB Conc 32.6 g/dl (31.0-35.0); Mean Corpuscular Hemoglobin 31.7 pg (27.0-33.0); Mean Corpuscular Volume 97.2 fL (80.0-98.0); Mean Platelet Volume 11.4 fL (9.4-12.3); Monocytes Absolute Auto 0.4 X10*3/uL (0.1-1.2); Monocytes Percent Auto 6.3 % (2-11); Neutrophils Percent Auto 71.4 % (45-73); Platelet Count 216 X10*3/uL (160-400); Red Blood Count 4.58 X10*6/uL (4.20-5.50); White Blood Count 5.6 X10*3/uL (4.8-10.8)
[2024-10-24 19:25] LABS: Erythrocyte Sedimentation Rate 7 MM/HR (0-20)
== END 2024-10-24 10:40 | disposition home or self-care (01) ==
LOC: HO.HKASLDS 10:39
PROVIDERS: PCP Nurse Practitioner Family; Visit Provider Internal Medicine Rheumatology
DX: Z13.89 Encounter for screening for other disorder (principal)
CPT/HCPCS: 36415; 82565; 84450; 84460; 85025; 85652; 86140

== ENCOUNTER 2024-10-24 14:08 | Outpatient (REF) | payer MEDICARE, SELFPAY | END 2024-10-24 14:09 | disposition home or self-care (01) | LOC: HO.HMGCX 14:08 | PROVIDERS: PCP Nurse Practitioner Family; Visit Provider Internal Medicine Rheumatology | DX: M41.9 Scoliosis, unspecified (principal); Z79.899 Other long term (current) drug therapy; Z79.60 Long term (current) use of unspecified immunomodulators and immunosuppressants | CPT/HCPCS: 36415; 72082; 82565; 84450; 84460; 85025; 85652; 86140 ==

== ENCOUNTER → 2024-10-24 14:39 | Outpatient (BNV) | payer MEDICARE, SELFPAY | PROVIDERS: PCP Nurse Practitioner Family; Visit Provider Radiology Diagnostic Radiology | DX: M41.9 Scoliosis, unspecified (principal) | CPT/HCPCS: 72082 ==

== ENCOUNTER 2024-10-28 14:17 | Outpatient (REF) | payer MEDICARE, SELFPAY ==
--- NOTE | ~2024-10-28 | XR_ITS ---
EXAMINATION: XR HAND, LEFT CLINICAL INFORMATION: M05.9 - Rheumatoid arthritis with rheumatoid factor, unspecified COMPARISON: No prior available to compare. TECHNIQUE: PA, lateral, and oblique views of the left hand. FINDINGS: No fracture or dislocation. Mild osteopenia. Mild to moderate joint space narrowing throughout the MCP joints, most notable involving the first through third. There may be subtle periarticular erosions especially involving the second and third MCPs. No ulnar deviation. Milder arthritis throughout the PIP joints without definitive erosions present. The DIP joints appear grossly spared. There is radiocarpal joint narrowing. No erosion of the ulnar styloid. Mild to moderate degenerative appearing arthritis in the first CMC joint and STT joints. Minimal soft tissue prominence overlying the MCPs. Soft tissues otherwise normal. XR/XR hand LT min 3V IMPRESSION: 1. Sequela of inflammatory arthropathy as detailed, most significantly involving the first through third MCP joints. Cannot assess for progression without prior for comparison. 2. There is likely superimposed degenerative arthritis in the first CMC and STT joints. Electronically signed by: Patrick Lucio MD 10/29/2024 12:25 PM EDT
--- NOTE | ~2024-10-28 | XR_ITS ---
EXAMINATION: XR HAND, RIGHT CLINICAL INFORMATION: M05.9 - Rheumatoid arthritis with rheumatoid factor, unspecified COMPARISON: No priors available to compare. TECHNIQUE: PA, lateral, and oblique views of the right hand. FINDINGS: No fracture or dislocation. Mild osteopenia. Moderate joint space narrowing throughout the MCP joints, most notable involving the first through third. There may be subtle periarticular erosions especially involving the second and third MCPs. Minimal ulnar angulation of the second and third MCPs. Milder arthritis throughout the DIP joints without definitive erosions present. The DIP joints appear grossly spared. There is radiocarpal joint narrowing. No erosion of the ulnar styloid. Moderate degenerative appearing arthritis in the first CMC joint and STT joints. Minimal soft tissue prominence overlying the MCPs. Soft tissues otherwise normal. XR/XR hand RT min 3V IMPRESSION: 1. Sequela of inflammatory arthropathy as detailed, most significantly involving the first through third MCP joints. Cannot assess for progression without prior for comparison. 2. There is likely superimposed degenerative arthritis in the first CMC and STT joints. Electronically signed by: Patrick Lucio MD 10/29/2024 12:22 PM EDT
--- NOTE | ~2024-10-28 | XR_ITS ---
EXAMINATION: XR FOOT, RIGHT CLINICAL INFORMATION: M05.9 - Rheumatoid arthritis with rheumatoid factor, unspecified COMPARISON: None available. TECHNIQUE: AP, lateral, and oblique views of the right foot. FINDINGS: No fracture or dislocation. Mild diffuse osteopenia. Minimal arthritis in the first MTP joint. No erosions seen. There is mild joint space narrowing throughout the interphalangeal joints. No definite erosions seen. Normal plantar arch. Midfoot and hindfoot appear normal. No soft tissue abnormality. XR/XR foot RT min 3V IMPRESSION: 1. No acute bony abnormalities. 2. Osteopenia. 3. Mild arthritis in the first MTP joint without evidence of erosions. 4. Mild joint space narrowing in the interphalangeal joints. Electronically signed by: Patrick Lucio MD 10/29/2024 12:28 PM EDT
--- NOTE | ~2024-10-28 | XR_ITS ---
EXAMINATION: XR FOOT, LEFT CLINICAL INFORMATION: M05.9 - Rheumatoid arthritis with rheumatoid factor, unspecified COMPARISON: None available. TECHNIQUE: AP, lateral, and oblique views of the left foot. FINDINGS: No fracture or dislocation. Mild diffuse osteopenia. Minimal arthritis in the first MTP joint. No erosions seen. There is mild joint space narrowing throughout the interphalangeal joints. No definite erosions seen. Normal plantar arch. Midfoot and hindfoot appear normal. No soft tissue abnormality. XR/XR foot LT min 3V IMPRESSION: 1. No acute bony abnormalities. 2. Osteopenia. 3. Mild arthritis in the first MTP joint without evidence of erosions. 4. Mild joint space narrowing in the interphalangeal joints. Electronically signed by: Patrick Lucio MD 10/29/2024 12:32 PM EDT
--- OUTSIDE RECORDS SUMMARY | 2024-10-28 16:21 | XMS_ITS | Continuity of Care Document ---
Author Organization [facility] lt Address [address] [place] [address]- Care Team Providers Care Tool Room Supervisor Name Role Phone Johan SEMICONDUCTOR PROCESSOR, Nilam Wilburn Primary Care Physician [phone] Encounter [facility] Date(s): 09/27/24 - 10/27/24 [facility] Adult [address] [place] [address]- Encounter Type: Triage Allergies, Adverse Reactions, Alerts Substance Criticality Severity Reaction Reaction Severity Status traMADol 1 Vomiting Active 1nausea and vomiting Immunizations Given and Recorded Vaccine Date Status Refusal Reason RSV vaccine preF3, recombinant 06/05/24 Recorded SARS-CoV-2(COVID-19)mRNA-LNP vac([id number]) 06/05/24 Recorded SARS-CoV-2(COVID-19)mRNA-LNP vac([id number]) 05/24/23 Recorded influenza virus vaccine, inactivated 1 05/22/24 Gi violet influenza virus vaccine, inactivated 05/16/23 Mack rded influenza virus vaccine, inactivated 06/01/22 Mack rded influenza virus vaccine, inactivated 05/05/21 Mack rded influenza virus vaccine, inactivated 06/04/20 Mack rded influenza virus vaccine, inactivated 06/10/16 Mack rded SARS-CoV-2 mRNA ([id number]) vax 05/21/24 Recorded pneumococcal 20-valent conjugate vaccine 2 04/11/23 Given tetanus-diphtheria toxoids (Td) 3 10/18/22 Given [id number] bivalent booster vax 06/08/22 Recorded pneumococcal 23-valent vaccine 04/05/22 Given SARS-CoV-2 (COVID-19) mRNA BNT-162b2 vac 06/22/21 Recorded SARS-CoV-2 (COVID-19) mRNA BNT-162b2 vac 11/26/20 Recorded SARS-CoV-2 (COVID-19) mRNA BNT-162b2 vac 11/05/20 Recorded pneumococcal 13-valent vaccine 06/10/16 Recorded 1Result Comment: [id number] 2Result Comment: [id number] 3Result Comment: [id number] Medications acetaminophen 325 mg oral tablet 650 [...] 5 Refills, Maintenance, 07/29/24 7:36:00 AM EST, [facility], 164, cm, 07/24/24 10:56:00 EST, Height, 49.8, kg, 12/14/22 11:05:00 EDT, Dry Weight Start Date: 07/29/24 Status: Ordered Quantity: 30.0 Unit: tablet Repeat number: 1 aspirin 81 mg oral delayed release tablet 81 mg, By Mouth, 2 times a day, # 60 tablet, Refills 0, Tot. Refills 0, Maintenance, 12/15/22 8:19:00 AM EDT, Route to Pharmacy Electronically, [facility], Partial fill upon patient request [...] PM EDT, 02/01/24 9:28:00 AM EDT, Tablet, [facility], 164, cm, 02/01/24 9:12:00 EDT, Height, 49.8, kg, 12/14/22 11:05:00 EDT, Dry Weight Start Date: 02/01/24 Stop Date: 02/01/25 Status: Ordered Quantity: 30.0 Unit: tablet Repeat number: 1 Multivitamin Daily, 0 Refills, Maintenance, 04/11/23 9:11:00 AM EDT, Partial fill upon patient request if the prescription is for a schedule II opioid drug. Start Date: 04/11/23 Status: Ordered Repeat number: 1 Jamul-3 Fish Oil By Mouth, 3 times a [...] Refills, Maintenance, 08/01/23 11:37:00 AM EST, Tablet, [facility], 164, cm, 08/01/23 11:24:00 EST, [...] Right upper lobe pulmonary nodule Confirmed Active Age-related macular degeneration, dry Confirmed Active Obstructive sleep apnea syndrome, moderate Confirmed Active Severe Osteoarthritis of both hips Confirmed Active Osteopenia Confirmed Active Tricuspid valve regurgitation Confirmed Active Social History Social History Type Response Smoking Status Never (less than 100 in lifetime) entered on: 03/26/19 Sex Sex Representation Female (finding) Patient Care team information Care Team Personnel Name: Nilam Prado NP Position: [facility] PCO Associate Professional Member Role: PCP Address: [address] [place] [id number]- Telecom: Name: Moise Chaudhry RN Position: [facility] RN Member Role: Primary Care Nurse Care Team Related Persons Name: CASEY MORENO Name: RAYRAY ROBERSON Insurance Providers Guarantor name: JAMIA ROBERSON Health Plan Information #: 1 Payer: [facility] [employer] [facility] HMO Member Number: NA Policy Number: NA Group Number: NA
== END 2024-10-28 14:18 | disposition home or self-care (01) ==
LOC: HO.HMGCX 14:17
PROVIDERS: PCP Nurse Practitioner Family; Visit Provider Internal Medicine Rheumatology
DX: M05.9 Rheumatoid arthritis with rheumatoid factor, unspecified (principal)
CPT/HCPCS: 73130; 73630

== ENCOUNTER → 2024-10-28 14:20 | Outpatient (BNV) | payer MEDICARE, SELFPAY | PROVIDERS: PCP Nurse Practitioner Family; Visit Provider Radiology Diagnostic Radiology | DX: M05.9 Rheumatoid arthritis with rheumatoid factor, unspecified (principal) | CPT/HCPCS: 73130; 73630 ==

== ENCOUNTER 2025-01-28 10:53 | Outpatient (AMB) | payer MEDICARE, SELFPAY ==
--- NOTE | 2025-01-28 13:14 | A.OFFVIS_ITS ---
Vital Signs 01/28/25 13:31 Height 5 ft 5 in Weight 112 lb 4 oz BMI 18.7 BP 140/80 H Blood Pressure Location Lt brachial Position Sitting Pulse 110 H Pulse Source Pulse Oximeter Pulse Oximetry (%) 95 Oxygen Delivery Method Room Air Intake Visit Reasons: 3 Months Intake Note: Patient is here to follow up on joint pain today. Accompanied by: Self / Same As Patient Allergies tramadol Allergy (Intermediate, Verified 01/28/25 13:32) extreme vomiting HPI HPI 3 Months: Details: R hand intermittent pain and stiffness. off of HCQ since 10/2024. She continues to have lower back pain. It brings her to tears when pain is inten se. It occurs with certain movements such as when she is reaching for something. Turning we will also cause pain. Self-limited. She has not self medicating. [facility] Surgical History (Updated 01/28/25 @ 13:33 by Laury Carranza [facility]) Hx of cataract surgery Physical Exam Vital Signs: Last Vital Signs Pulse 110 H 01/28/25 13:31 BP 140/80 H 01/28/25 13:31 Pulse Ox 95 01/28/25 13:31 Oxygen Delivery Method Room Air 01/28/25 13:31 BMI result Body Mass Index 18.7 Const Other: General: Comfortable CVS: RRR Respiratory: clear to auscultation bilaterally. Good respiratory effort Skin: No lesions seen MSK: Right CMC tenderness with squaring. Ulnar deviation of right MCPs which are reproducible. No synovitis present. 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 Normal range of motion of upper extremity and lower extremity. Mild Scoliosis present. No spinous process tenderness. Tender right mid lumbar paraspinal muscles. Good lumbar flexion. Office Procedures AMB Joint Injection/Aspiration Joint Injection/Aspiration Details: Right CMC Prep: site was prepped using aseptic technique Injected: 10 mg of, Kenalog, with 0.25 mL of and 1% plain lidocaine Procedure: Verbal informed consent was obtained. The patient tolerated the procedure well. Postprocedure protocol was discussed with patient. Coding - Small Joint Procedure code (CPT) selection complete Office Meds lidocaine (PF) 10 mg/mL (1 %) injection solution Performing Provider: Wilfredo Mendoza MD Performing Location: [facility] Rheumatology-[facility] Administered by: Wilfredo Mendoza MD on 01/29/25 08:21 Dose Route Admin Location Dispensed Lot Number Expiration Date [facility] Manager [employer] 2.5 mg Infiltration 2 mL [id number] [employer] Kenalog 40 mg/mL suspension for injection Performing Provider: Wilfredo Mendoza MD Performing Location: [facility] Rheumatology-[facility] Administered by: Wilfredo Mendoza MD on 01/29/25 08:21 Dose Route Admin Location Dispensed Lot Number Expiration Date [facility] Manager [employer] 10 mg intra-articular 1 mL AP [id number] [facility] Assessment & Plan Assessment & Plan (1) Rheumatoid arthritis, seropositive: Comment: Hydroxychloroquine was discontinued after eye exam by financial sales associate Dr. Saravia who diagnosed patient with age-related macular degeneration mild to moderate in both eyes 10/25/2024. Age-related macular degeneration confounds ocular testing to assess for ocular toxicity from hydroxychloroquine. Repeat hand x-rays reveal joint space narrowing of MCPs of bilateral hands due to deforming inflammatory arthritis. She has developed mild right hand stiffness and pain off of hydroxychloroquine. We discussed importance of DMARD therapy to prevent progression of disease. Discussed side effects, benefits and drug monitoring on sulfasalazine. She had recent mild elevation in ALT on repeat testing. I am avoiding leflunomide and methotrexate due to mild transaminitis. If repeat labs reveal persistent transaminitis, she will need imaging for further workup. Patient agrees with plan. Rheumatology history: History of deforming seropositive rheumatoid arthritis +anti CCP antibody, radiographic findings of periarticular osteopenia carpal bones and MCPs with joint space narrowing of MCPs, PIP and IP with multiple questionable erosions. 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 She has a strong family history of FMF. Her daughter and grandson have systemic FMS. Her son has FMS related inflammatory arthritis. She has reported episodic joint pain since she was young. HCQ 2021- 10/28/2024 d/c due to ARMD. Code(s): M05.9 - Rheumatoid arthritis with rheumatoid factor, unspecified Category: Medical Plan: Labs for disease and drug monitoring ordered prior to starting sulfasalazine. If labs remain stable, I will start sulfasalazine 500 mg twice a day. She will then need labs a month after starting sulfasalazine with CBC, creatinine, AST and ALT Return to clinic in 3 months (2) Scoliosis: Comment: Likely contributing to myofascial strain. Code(s): M41.9 - Scoliosis, unspecified Category: Medical Qualifiers: Scoliosis type: idiopathic Idiopathic scoliosis type: other Spinal region: thoracolumbar Qualified Code(s): M41.25 - Other idiopathic scoliosis, thoracolumbar region Plan: Continue PT exercises at home Return to clinic in 3 months (3) Arthritis of carpometacarpal (CMC) joint of right thumb: Comment: Uncontrolled pain. Pain resolved with last cortisone injection. Code(s): M18.11 - Unilateral primary osteoarthritis of first carpometacarpal joint, right hand Category: Medical Plan: Patient received right CMC cortisone injection Return to clinic in 3 months (4) Raynaud's phenomenon without gangrene: Comment: Active with cold weather. Managed conservatively. 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 Discussed conservative management. Code(s): S39.012A - Strain of muscle, fascia and tendon of lower back, initial encounter Category: Medical Plan: Apply heat to back twice a day Continue home exercise program Take ibuprofen 600 mg Q 8 hour prn pain. Avoid Tylenol at this time due to mild transaminitis. Apply lidocaine patch to back daily If pain does not improve in 2 weeks, I have asked her to call office for PT referral for myofascial release, manual and TENs unit trial Orders: Orders Erythrocyte Sedimentation Rate 01/28/25 Z79.899 - Other termite renewal inspector (current) drug therapy Liver Panel 01/28/25 R74.01 - Elevation of levels of liver transaminase levels C Reactive Protein 01/28/25 Z79.899 - Other termite renewal inspector (current) drug therapy Complete Blood Count Auto Diff 01/28/25 Z79.899 - Other residential (current) drug therapy Creatinine 01/28/25 Z79.899 - Other residential (current) drug therapy AMB Joint Injection/Aspiration 01/28/25 M18.11 - Unilateral primary osteoarthritis of first carpometacarpal joint, right hand Coding Level of Care Code Est Pt Level 4 (36370) Complex EM visit Add On G2211 Diagnoses Rheumatoid arthritis, seropositive M05.9 Other idiopathic scoliosis, thoracolumbar region M41.25 Scoliosis type: idiopathic Idiopathic scoliosis type: other Spinal region: thoracolumbar Arthritis of carpometacarpal (CMC) joint of right thumb M18.11 Raynaud's phenomenon without gangrene I73.00 Transaminitis R74.01 Other termite renewal inspector (current) drug therapy Z79.899 Strain of muscle, fascia and tendon of lower back, initial encounter S39.012A CPT Codes Coding - 33714 - Small joint: 57443 - Small Joint ([id number])
[2025-01-28 13:31] VITALS: BP 140/80; PULSE 110; O2SAT 95; BMI 18.7
== END 2025-01-28 14:21 | disposition home or self-care (01) ==
LOC: HO.RHES 10:54
PROVIDERS: PCP Nurse Practitioner Family; Visit Provider Internal Medicine Rheumatology
DX: M18.11 Unilateral primary osteoarthritis of first carpometacarpal joint, right hand (principal)
CPT/HCPCS: 20600; 99214

== ENCOUNTER → 2025-01-28 10:53 | Outpatient (BNVA) | payer MEDICARE, SELFPAY | PROVIDERS: PCP Nurse Practitioner Family; Visit Provider Internal Medicine Rheumatology | DX: M05.9 Rheumatoid arthritis with rheumatoid factor, unspecified (principal); M18.11 Unilateral primary osteoarthritis of first carpometacarpal joint, right hand; M41.25 Other idiopathic scoliosis, thoracolumbar region; I73.00 Raynaud's syndrome without gangrene; R74.01 Elevation of levels of liver transaminase levels; S39.012A Strain of muscle, fascia and tendon of lower back, initial encounter; X58.XXXA Exposure to other specified factors, initial encounter; Y93.9 Activity, unspecified; Y92.9 Unspecified place or not applicable; Y99.9 Unspecified external cause status; Z79.899 Other long term (current) drug therapy | CPT/HCPCS: 20600; 99212; J2003; J3300 ==

== ENCOUNTER 2025-02-03 15:15 | Outpatient (REF) | payer MEDICARE, SELFPAY ==
[2025-02-03 16:14] LABS: MANUAL DIFF FLAG NO
[2025-02-03 16:30] LABS: Basophils Percent Auto 0.7 % (0-2); Eosinophils Percent Auto 0.5 % (0-4); Hematocrit 42.3 % (37.0-47.0); Hemoglobin 14.2 g/dl (12.0-16.0); Imm Gran Abs Auto 0.01 X10*3/uL (0.00-0.03); Imm Gran Pct Auto 0.2 % (0.0-0.4); Lymphocytes Absolute Auto 1.3 X10*3/uL (1.2-4.9); Lymphocytes Percent Auto 21.9 % (20-40); Mean Corpuscular HGB Conc 33.6 g/dl (31.0-35.0); Mean Corpuscular Hemoglobin 31.6 pg (27.0-33.0); Mean Platelet Volume 11.8 fL (9.4-12.3); Monocytes Absolute Auto 0.5 X10*3/uL (0.1-1.2); Monocytes Percent Auto 7.7 % (2-11); Neutrophils Absolute Auto 4.1 x10*3/uL (2.0-8.3); Platelet Count 212 X10*3/uL (160-400); Red Cell Distribution Width 12.8 % (11.0-16.0)
[2025-02-03 16:51] LABS: Alanine Aminotransferase 28 U/L (0-31); Albumin Level 4.3 g/dL (3.5-5.0); Alkaline Phosphatase 89 U/L (39-117); Aspartate Amino Transferase 26 U/L (5-31); Bilirubin Direct 0.2 mg/dL (0.0-0.5); Bilirubin Total 0.6 mg/dL (0.0-1.0); C Reactive Protein 0.37 mg/dL (< or = 0.50); Estimated Glomerular Filt Rate > 60; Total Protein 6.8 g/dL (6.5-8.0)
[2025-02-03 16:54] LABS: Erythrocyte Sedimentation Rate 7 MM/HR (0-20)
== END 2025-02-03 15:16 | disposition home or self-care (01) ==
LOC: HO.HMGCLDS 15:15
PROVIDERS: PCP Nurse Practitioner Family; Visit Provider Internal Medicine Rheumatology
DX: R74.01 Elevation of levels of liver transaminase levels (principal); Z79.899 Other long term (current) drug therapy
CPT/HCPCS: 36415; 80076; 82565; 85025; 85652; 86140

== ENCOUNTER 2025-03-17 13:51 | Outpatient (REF) | payer MEDICARE, SELFPAY ==
[2025-03-17 16:18] LABS: Baso%MD 0.8 %; Eos%MD 0.1 %; Hematocrit 41.7 % (37.0-47.0); Hemoglobin 13.6 g/dl (12.0-16.0); IG%MD 0.3 %; Lymph%MD 13.7 %; Mean Corpuscular HGB Conc 32.6 g/dl (31.0-35.0); Mean Corpuscular Hemoglobin 31.3 pg (27.0-33.0); Mean Corpuscular Volume 95.9 fL (80.0-98.0); Mono%MD 6.6 %; NRBC Abs Auto 0.000 X10*3/uL (0.0-0.012); NRBC Pct Auto 0.0 /100WBC (0.0-0.2); Neut%MD 78.5 %; Red Blood Count 4.35 X10*6/uL (4.20-5.50); White Blood Count 7.4 X10*3/uL (4.8-10.8)
[2025-03-17 16:33] LABS: Alanine Aminotransferase 31 U/L (0-31); Aspartate Amino Transferase 26 U/L (5-31); Estimated Glomerular Filt Rate > 60
[2025-03-17 17:50] LABS: Atypical Lymph Absolute Manual 0.2 x10*3/uL; Atypical Lymphs Percent Manual 3 % (0-6); Band Neutrophils Percent 0 % (3-5); Basophils Abs Manual 0.1 X10*3/uL (0.0-0.2); Basophils Percent Manual 1 % (0-2); Eosinophils Absolute Manual 0.1 X10*3/uL (0.0-0.4); Eosinophils Percent Manual 1 % (0-4); Lymphocytes Absolute Manual 1.0 X10*3/uL (1.2-4.9); Lymphocytes Percent Manual 13 % (20-40); Monocytes Absolute Manual 0.6 X10*3/uL (0.1-1.2); Monocytes Percent Manual 8 % (2-11); Neutrophils Absolute Manual 5.5 X10*3/uL (2.0-8.3); Neutrophils Percent Manual 74 % (45-73)
[2025-03-17 17:51] LABS: RBC Morphology NORMAL
[2025-03-17 17:52] LABS: Large Platelet PRESENT
[2025-03-17 17:53] LABS: Toxic Vacuolation PRESENT
== END 2025-03-17 13:52 | disposition home or self-care (01) ==
LOC: HO.HMGCLDS 13:51
PROVIDERS: PCP Nurse Practitioner Family; Visit Provider Internal Medicine Rheumatology
DX: M05.9 Rheumatoid arthritis with rheumatoid factor, unspecified (principal); Z79.899 Other long term (current) drug therapy
CPT/HCPCS: 36415; 82565; 84450; 84460; 85007; 85027

== ENCOUNTER 2025-05-06 09:42 | Outpatient (AMB) | payer MEDICARE, SELFPAY ==
--- NOTE | 2025-05-06 09:43 | A.OFFVIS_ITS ---
Vital Signs 05/06/25 09:48 Height 5 ft 5 in Weight 112 lb 3.445 oz BMI 18.7 BP 130/60 Blood Pressure Location Lt brachial Position Sitting Pulse 91 Pulse Source Pulse Oximeter Pulse Oximetry (%) 99 Oxygen Delivery Method Room Air Intake Visit Reasons: 3 Months Intake Note: Patient is here to follow up on joint pain today. Accompanied by: Self / Same As Patient Allergies tramadol Allergy (Intermediate, Verified 05/06/25 09:49) extreme vomiting HPI HPI 3 Months: Details: Swelling in ankles and foot in February associated with warmth and pain. Last a month. There was a rash on the ankles on the side. Ibuprofen 400mg BID without change. SHe had personal stress around that time. She was vacationing on a boat for a week. [facility] Surgical History Hx of cataract surgery Physical Exam Vital Signs: Last Vital Signs Pulse 91 05/06/25 09:48 BP 130/60 05/06/25 09:48 Pulse Ox 99 05/06/25 09:48 Oxygen Delivery Method Room Air 05/06/25 09:48 BMI result Body Mass Index 18.7 Const Other: General: Comfortable CVS: RRR Respiratory: clear to auscultation bilaterally. Good respiratory effort Skin: No lesions seen MSK: CMC squaring without tenderness. Ulnar deviation of right MCPs which are reproducible. No synovitis present. 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 Normal range of motion of upper extremity and lower extremity. Tender bilateral ankles. No MTP tenderness. Hammertoes present. Hallux valgus present. Assessment & Plan Assessment & Plan (1) Rheumatoid arthritis, seropositive: Comment: She is tolerating sulfasalazine. At this time inflammatory arthritis is controlled. She had an episode in February of bilateral ankle swelling with associated rash concerning for FMF flare, which patient has not had in a long time. She recently started sulfasalazine in January. Sulfasalazine would be effective at the current dose by this visit. If she has another flare, she will try NSAID ibuprofen 600 mg t.i.d.. If there is no improvement within the week, she will call office for next steps. I will then consider a course of prednisone and increasing sulfasalazine dose. Patient agrees with plan. Rheumatology history: History of deforming seropositive rheumatoid arthritis +anti CCP antibody, radiographic findings of periarticular osteopenia carpal bones and MCPs with joint space narrowing of MCPs, PIP and IP with multiple questionable erosions. 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 She has a strong family history of FMF. Her daughter and grandson have systemic FMS. Her son has FMS related inflammatory arthritis. She has reported episodic joint pain since she was young. HCQ 2021- 10/28/2024 d/c due to ARMD per recommendation from plate roller Dr. Saravia as ARMD would confound testing to assess ocular toxicity from hydroxychloroquine. Sulfasalazine 01/2025- Code(s): M05.9 - Rheumatoid arthritis with rheumatoid factor, unspecified Category: Medical Plan: Labs for disease and drug monitoring ordered Continue sulfasalazine 500 mg twice a day Return to clinic in 3 months (2) Arthritis of carpometacarpal (CMC) joint of right thumb: Comment: Pain is controlled with last set of cortisone injections from January 2025. Code(s): M18.11 - Unilateral primary osteoarthritis of first carpometacarpal joint, right hand Category: Medical Plan: Monitor clinically (3) Raynaud's phenomenon without gangrene: Comment: Active with cold weather. Managed conservatively. Code(s): I73.00 - Raynaud's syndrome without gangrene Category: Medical Plan: Continue conservative management Return to clinic in 3 months (4) Other jail (current) drug therapy: Code(s): Z79.899 - Other jail (current) drug therapy Category: Medical Plan: See above Orders: Orders Complete Blood Count Auto Diff Today Z79.899 - Other long wall mining machine helper (current) drug therapy Alanine Aminotransferase Today Z79.899 - Other long wall mining machine helper (current) drug therapy Aspartate Amino Transferase Today Z79.899 - Other jail (current) drug therapy Creatinine Today Z79.899 - Other jail (current) drug therapy C Reactive Protein Today Z79.899 - Other long wall mining machine helper (current) drug therapy Erythrocyte Sedimentation Rate Today Z79.899 - Other jail (current) drug therapy Medications: Refilled sulfasalazine Take 1 tablet twice a day 0.5 grams PO BID 60 tabs 2RF Coding Level of Care Code Est Pt Level 4 (73627) Complex EM visit Add On G2211 Diagnoses Rheumatoid arthritis, seropositive M05.9 Arthritis of carpometacarpal (CMC) joint of right thumb M18.11 Raynaud's 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
[2025-05-06 09:48] VITALS: BP 130/60; PULSE 91; O2SAT 99; BMI 18.7
--- OUTSIDE RECORDS SUMMARY | 2025-05-06 12:24 | XMS_ITS | Patient Health Record ---
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 Name Role Phone Demetrio Stein MD Primary Care Provider Unavailab Kevin Looney Unavailable [phone] Reason For Referral No Information Medications Medication SIG (Take, Route, Fr equency, Duration) Notes Start Date End Date Status Aspirin 81 81 MG 1 tablet Orally Once a day for 30 day(s) Active Fish Oil 1000 MG 1 capsule Orally Onc e a day for 30 day(s) Active Vitamin D 1000 UNIT 1 tablet Orally Once a day for 30 day(s) Active Social History Tobacco Use: Social History Observation Description Date Details (start date - stop date) Never Smoker NA - NA Tobacco Use/Smoking Question Answer Notes Patient is a nonsmoker Alcohol Screen Question Answer Notes Did you have a drink contain ing alcohol in the past year? Yes How often did you have a dri nk containing alcohol in the past year? Never (0 point) How many drinks did you have on a typical day when you were drinking in the past year? 1 or 2 drinks (0 point) Points 0 Interpretation Negative Section Notes: Nonsmoker; no sig alcohol Problems Problem Type SNOMED Code ICD Code Onset Dates Problem Status W/U Status Risk Notes Problem 306002042 Encounter for screening for malignant neoplasm of colon (Z12.11) Active confirmed Problem 789669300359207 Preprocedural examination (Z01.818) Active confirmed Problem 169693433 Long-term use of aspirin therapy (Z79.82) Active confirmed Plan Of Treatment Future Test Test Name Order Date COLONOSCOPY 01/24/2019 Insurance Providers Payer Name Payer Address Payer Phone Subscriber Number Group Number Insured Name Patient Relationship to Insured Coverage Start Date Coverage End Date [facility] [address] [facility] [place] [phone] [id number] JAMIA ROBERSON Self - patient is the insured Medical (General) History Medical History History ICD Code Denies [place],DM,CVA,Lung disease,renal dise ase Negative screening colonoscopy in 2003 Surgical History Surgery Date(Month/Year) Tonsillectomy Jaw surgery
== END 2025-05-06 10:11 | disposition home or self-care (01) ==
LOC: HO.RHES 09:43
PROVIDERS: PCP Nurse Practitioner Family; Visit Provider Internal Medicine Rheumatology
DX: M05.9 Rheumatoid arthritis with rheumatoid factor, unspecified (principal); M18.11 Unilateral primary osteoarthritis of first carpometacarpal joint, right hand; I73.00 Raynaud's syndrome without gangrene; Z79.899 Other long term (current) drug therapy
CPT/HCPCS: 99214; G2211

== ENCOUNTER 2025-05-06 09:42 | Outpatient (REF) | payer MEDICARE, SELFPAY ==
[2025-05-06 13:56] LABS: MANUAL DIFF FLAG NO
[2025-05-06 14:02] LABS: Hematocrit 42.1 % (37.0-47.0); Hemoglobin 13.5 g/dl (12.0-16.0); Imm Gran Abs Auto 0.01 X10*3/uL (0.00-0.03); Imm Gran Pct Auto 0.2 % (0.0-0.4); Lymphocytes Absolute Auto 0.8 X10*3/uL (1.2-4.9); Mean Corpuscular HGB Conc 32.1 g/dl (31.0-35.0); Mean Corpuscular Hemoglobin 31.0 pg (27.0-33.0); Mean Corpuscular Volume 96.8 fL (80.0-98.0); NRBC Abs Auto 0.000 X10*3/uL (0.0-0.012); NRBC Pct Auto 0.0 /100WBC (0.0-0.2); Red Blood Count 4.35 X10*6/uL (4.20-5.50); White Blood Count 4.3 X10*3/uL (4.8-10.8)
[2025-05-06 14:21] LABS: Alanine Aminotransferase 27 U/L (0-31); Aspartate Amino Transferase 27 U/L (5-31); Estimated Glomerular Filt Rate > 60
== END 2025-05-06 09:43 | disposition home or self-care (01) ==
LOC: HO.HKASLDS 09:42
PROVIDERS: PCP Nurse Practitioner Family; Visit Provider Internal Medicine Rheumatology
DX: M18.11 Unilateral primary osteoarthritis of first carpometacarpal joint, right hand (principal); M05.9 Rheumatoid arthritis with rheumatoid factor, unspecified; I73.00 Raynaud's syndrome without gangrene; Z79.61 Long term (current) use of immunomodulator; Z79.899 Other long term (current) drug therapy
CPT/HCPCS: 36415; 82565; 84450; 84460; 85025; 85652; 86140; 99212

== ENCOUNTER 2025-05-22 13:33 | Outpatient (REF) | payer MEDICARE, SELFPAY ==
[2025-05-22 17:48] LABS: Hematocrit 41.3 % (37.0-47.0); Imm Gran Abs Auto 0.01 X10*3/uL (0.00-0.03); Imm Gran Pct Auto 0.2 % (0.0-0.4); MANUAL DIFF FLAG SCAN; NRBC Abs Auto 0.000 X10*3/uL (0.0-0.012); NRBC Pct Auto 0.0 /100WBC (0.0-0.2); SCAN SMEAR FLAG 1
[2025-05-22 17:50] LABS: Hemoglobin 13.4 g/dl (12.0-16.0); Lymphocytes Absolute Auto 1.1 X10*3/uL (1.2-4.9); Mean Corpuscular HGB Conc 32.4 g/dl (31.0-35.0); Mean Corpuscular Hemoglobin 31.2 pg (27.0-33.0); Mean Corpuscular Volume 96.3 fL (80.0-98.0); PLT CLUMP 1; Red Blood Count 4.29 X10*6/uL (4.20-5.50)
[2025-05-22 18:07] LABS: Estimated Glomerular Filt Rate > 60; Uric Acid 3.9 mg/dL (2.4-5.7)
[2025-05-22 18:14] LABS: PLT ABN DIST 1
[2025-05-22 18:15] LABS: White Blood Count 5.3 X10*3/uL (4.8-10.8)
[2025-05-22 18:21] LABS: Ferritin 54 ng/mL (10-250)
== END 2025-05-22 13:34 | disposition home or self-care (01) ==
LOC: HO.HKASLDS 13:33
PROVIDERS: PCP Nurse Practitioner Family; Visit Provider Internal Medicine Rheumatology
DX: M25.474 Effusion, right foot (principal); M05.9 Rheumatoid arthritis with rheumatoid factor, unspecified; Z79.899 Other long term (current) drug therapy
CPT/HCPCS: 20600; 36415; 82565; 82728; 84550; 85025; 85652; 86140; 99212; J2003

== ENCOUNTER 2025-05-22 13:33 | Outpatient (AMB) | payer MEDICARE, SELFPAY ==
[2025-05-22 13:39] VITALS: BP 120/82; PULSE 96; O2SAT 99; BMI 18.6
--- NOTE | 2025-05-22 13:39 | A.OFFVIS_ITS ---
Vital Signs 05/22/25 13:39 Height 5 ft 5 in Weight 111 lb 15.917 oz BMI 18.6 BP 120/82 Blood Pressure Location Rt brachial Position Sitting Pulse 96 Pulse Source Pulse Oximeter Pulse Oximetry (%) 99 Oxygen Delivery Method Room Air Intake Visit Reasons: foot pain/ per MD Intake Note: Patient presents today for right foot pain. Accompanied by: Self / Same As Patient Allergies tramadol Allergy (Intermediate, Verified 05/06/25 09:49) extreme vomiting HPI HPI foot pain/ per MD: Details: Last Monday she noticed increase swelling and pain of her right 1st toe. Symptoms started the day before. Improving. No other joints are involved. 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 Ibuprofen 600mg qhs has been helpful. [facility] Surgical History Hx of cataract surgery Physical Exam Vital Signs: Last Vital Signs Pulse 96 05/22/25 13:39 BP 120/82 05/22/25 13:39 Pulse Ox 99 05/22/25 13:39 Oxygen Delivery Method Room Air 05/22/25 13:39 BMI result Body Mass Index 18.6 Const Other: General: Comfortable CVS: RRR Respiratory: clear to auscultation bilaterally. Good respiratory effort Skin: No lesions seen MSK: Tender to palpate right 1st MTP. She has a fat pad on palmar aspect of MTP with soft tissue swelling. First MTP is warm. No other joints are swollen. Haberden's nodes present. Normal range of motion of UE and LE. Office Procedures AMB Joint Injection/Aspiration Joint Injection/Aspiration Details: Right 1st MTP Prep: site was prepped using aseptic technique Injected into site: 0.5 mL of 1% plain lidocaine was injected into the site using 25 gauge 1-1/2 inch needle. Using 22 gauge 1 in needle, diagnostic arthrocentesis was attempted but no synovial fluid was aspirated. Procedure: Inform verbal consent was obtained. The patient tolerated the procedure well. Postprocedure protocol was discussed with patient. Primary Site: other Coding - Small Joint Procedure code (CPT) selection complete Office Meds lidocaine (PF) 10 mg/mL (1 %) injection solution Performing Provider: Wilfredo Mendoza MD Performing Location: [facility] Administered by: Mary Heath RN on 05/22/25 14:24 Dose Route Admin Location Dispensed Lot Number Expiration Date NDC Supervisor Offset Plate Preparation 1 mL Infiltration 2 mL [id number] 01/18/27 07091-034-38 ARTURO MARCUS Total Dispensed Waste 2 mL 50 % Results Reviewed Results Reviewed: Labs in expanse reviewed. Recent kidney function from last month is normal with normal inflammatory markers. Assessment & Plan Assessment & Plan (1) Swelling of first metatarsophalangeal (MTP) joint of right foot: Comment: Acute recurrent joint swelling. Second episode since February. Improving with ibuprofen 600 q.h.s.. 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 X-ray 10/2024 bilateral feet showed degenerative changes localized to 1st MTPs. Diagnotic arthrocentesis was performed but no synovial fluid was aspirated from joint. Code(s): M25.474 - Effusion, right foot Category: Medical Plan: Labs ordered She can take ibuprofen 600 mg Q 8 hourly PRN pain Return to clinic in 3 months Orders: Orders Erythrocyte Sedimentation Rate Today M05.9 - Rheumatoid arthritis with rheumatoid factor, unspecified, M25.474 - Effusion, right foot, Z79.899 - Other roasterman (current) drug therapy Uric Acid Today M05.9 - Rheumatoid arthritis with rheumatoid factor, unspecified, M25.474 - Effusion, right foot Complete Blood Count Auto Diff Today M25.474 - Effusion, right foot C Reactive Protein Today M05.9 - Rheumatoid arthritis with rheumatoid factor, unspecified, M25.474 - Effusion, right foot, Z79.899 - Other roasterman (current) drug therapy Ferritin Today M25.474 - Effusion, right foot Creatinine Today M25.474 - Effusion, right foot AMB Joint Injection/Aspiration Today M25.474 - Effusion, right foot Coding Level of Care Code Est Pt Level 4 (81863) Complex EM visit Add On G2211 Diagnoses Swelling of first metatarsophalangeal (MTP) joint of right foot M25.474 CPT Codes Coding - - Small joint: 14713 - Small Joint ([id number])
--- OUTSIDE RECORDS SUMMARY | 2025-05-22 15:04 | XMS_ITS | Patient Health Record ---
Author Organization [facility] Address [address] [place] [address] Care Team Providers Care Net W[employer] Developer Name Role Phone Demetrio Stein MD Primary Care Provider Unavailab Kevin Looney Unavailable [phone] Reason For Referral No Information Medications Medication [...] Problem Status W/U Status Risk Notes Problem 784741268 Encounter for screening for malignant neoplasm of colon (Z12.11) Active confirmed Problem [id number] Preprocedural examination (Z01.818) Active confirmed Problem 963974545 Long-term use of aspirin therapy (Z79.82) Active confirmed Plan Of Treatment Future Test Test Name Order Date COLONOSCOPY 01/24/2019 Insurance Providers Payer Name Payer Address Payer Phone Subscriber Number Group Number Insured Name Patient Relationship to Insured Coverage Start Date Coverage End Date [facility] [address] [facility] [place] [id number] [id number] JAMIA ROBERSON Self - patient is the insured Medical (General) History Medical History History ICD Code Denies [place],DM,CVA,Lung disease,renal dise ase Negative screening colonoscopy in 2003 Surgical History Surgery Date(Month/Year) Tonsillectomy Jaw surgery
== END 2025-05-22 14:19 | disposition home or self-care (01) ==
LOC: HO.RHES 13:34
PROVIDERS: PCP Nurse Practitioner Family; Visit Provider Internal Medicine Rheumatology
DX: M25.474 Effusion, right foot (principal); M79.671 Pain in right foot
CPT/HCPCS: 20600; 99214